=== PATIENT | female | born 1980 | race Caucasian/White ===

== ENCOUNTER 2021-05-20 15:22 | Outpatient (CLI) | payer OTHER, SELFPAY ==
[2021-05-20 18:05] LABS: Absolute Lymphocyte Count 2.55 X10^3/uL (0.83-4.51); Absolute Neutrophil Count 5.1 X10^3/uL (2.0-7.7); Basophil# 0.04 X10^3/uL; Basophil% 0.5 % (0-1); Eosinophil# 0.19 X10^3/uL; Eosinophils% 2.3 % (0-5); Hematocrit 42.9 % (37-47); Hemoglobin 14.4 g/dL (12.0-15.0); Lymphocyte # 2.55 X10^3/ul (0.83-4.51); Lymphocyte % 30.7 % (19-41); Mean Corp Hgb Conc 33.6 g/dL (32-36); Mean Corpuscular Hgb 29.6 pg (27.0-32.0); Mean Corpuscular Volume 88.3 fL (81-99); Mean Platelet Vol. 10.3 fl (6.2-12.0); Monocyte% 4.8 % (0-10); NRBC Flagged by Analyzer 0 % (0-5); Neutrophil # 5.11 X10^3/uL (2.7-7.7); Neutrophil % 61.5 % (47-70); Platelet Count 302 K/mm3 (150-450); RBC Distribution Width CV 12.8 % (11.6-14.6); RBC Distribution Width SD 41.5 fl (35.1-43.9); Red Blood Count 4.86 M/mm3 (4.2-5.4); White Blood Count 8.3 K/mm3 (4.4-11.0)
[2021-05-20 18:41] LABS: ALB/GLOB Ratio 1.2 RATIO (0.9-2.4); AST(SGOT) 8 U/L (15-37); Alanine Aminotransfer ALT/SGPT 16 U/L (13-56); Alkaline Phosphatase 89 U/L (45-117); Anion Gap 9 (5-15); BUN 11 mg/dL (7-18); BUN/Creat Ratio 15.3 RATIO (10-20); Calcium,Total 8.7 mg/dL (8.5-10.1); Chloride 107 mmol/L (98-107); Creatinine, Serum 0.72 mg/dL (0.55-1.02); EST Glomerular Filtration Rate 94 mL/min (>60); Est Glom Filt Rate - Afr Amer 114 mL/min (>60); Globulin 3.4 g/dL (2.2-4.2); Glucose 84 mg/dL (74-106); Potassium 3.8 mmol/L (3.5-5.1); Protein, Total 7.4 g/dL (6.4-8.2); Sodium Level 140 mmol/L (136-145); T4 Free Direct 0.94 ng/dL (0.76-1.46); Thyroid Stim Hormone (TSH) 1.36 uIU/mL (0.358-3.74)
[2021-05-22 20:50] LABS: Anti-Thyroglobulin AB < 1.0 IU/mL (0.0-0.9); Thyroglobulin, Serum Qt. 10.4 ng/mL (1.5-38.5); Thyroid Peroxidase AB < 8 IU/mL (0-34)
== END 2021-05-20 23:59 | disposition home or self-care (01) ==
PROVIDERS: PCP Family Medicine; Referring Provider Family Medicine; Visit Provider Family Medicine
DX: E04.1 Nontoxic single thyroid nodule (principal)
CPT/HCPCS: 36415; 80053; 84432; 84439; 84443; 85025; 86376; 86800

== ENCOUNTER 2021-05-21 16:17 | Outpatient (CLI) | payer OTHER, SELFPAY ==
--- NOTE | 2021-05-21 16:19 | US_ITS ---
STUDY: THYROID ULTRASOUND REASON FOR EXAM: Female, 41 years old. Known nodules TECHNIQUE: Ultrasound evaluation of the thyroid was performed with real-time and static mo-scale imaging. COMPARISON: 2014 FINDINGS: RIGHT LOBE: The right lobe of the thyroid gland measures 6.0 x 2.1 x 1.7 cm. There is a heterogeneous echotexture. 2 separate solid nodules, larger measures 1.4 cm. LEFT LOBE: The left lobe of the thyroid gland measures 5.5 x 2.1 x 1.4 cm. There is a heterogeneous echotexture. There is a solid/cystic 1.9 cm nodule ISTHMUS: The isthmus measures 0.7 cm. There is a 0.9 cm isthmus nodule. The regional lymph nodes are normal. US/Thyroid IMPRESSION: Enlarged heterogeneous thyroid gland with bilateral nodules. LITTLE significant change since the previous study. Findings again suggest goiter. Electronically Signed: Roby Ramos MD at 17:00 EST ,
== END 2021-05-21 23:59 | disposition home or self-care (01) ==
LOC: US 16:18
PROVIDERS: PCP Family Medicine; Referring Provider Family Medicine; Visit Provider Family Medicine
DX: E04.1 Nontoxic single thyroid nodule (principal)
CPT/HCPCS: 76536

== ENCOUNTER 2021-07-09 15:34 | Outpatient (CLI) | payer OTHER, SELFPAY ==
[2021-07-15 16:38] LABS: HPV APTIMA, High Risk Negative (Negative)
== END 2021-07-09 23:59 | disposition home or self-care (01) ==
LOC: WOBLAB 15:34
PROVIDERS: PCP Family Medicine; Visit Provider Student in an Organized Health Care Education/Training Program
DX: Z12.4 Encounter for screening for malignant neoplasm of cervix (principal)
CPT/HCPCS: 87624; 88175; G0145

== ENCOUNTER → 2021-10-19 | Outpatient (CLI) | payer OTHER, SELFPAY ==
--- NOTE | 2021-10-19 13:33 | BI_ITS ---
MAMMOGRAPHY - BILATERAL SCREENING REASON FOR EXAM: Female, 41 years old. Routine annual screening examination. PERTINENT HISTORY: Aunt with breast cancer. TECHNIQUE: Digital bilateral breast yesi (3D mammographic acquisition) in the CC and MLO projections. 2-D mediolateral oblique (MLO) and craniocaudad (CC) views of both breasts were obtained. CAD: Full Field Digital Mammography with Computer Added Detection was performed. COMPARISON: None. Baseline examination. FINDINGS: Breast Composition: There are scattered areas of fibroglandular density. There are no dominant masses or suspicious calcifications. No other significant abnormalities are identified. BI/SCRN MAMM (CAD)W/YESI BILAT IMPRESSION: Negative screening mammogram. Yearly followup mammogram recommended. (A) ASSESSMENT CATEGORY: BIRADS Category 1: Negative. A letter regarding these results will be sent to the patient by the facility within 30 days. Approximately 10% of breast cancers are not detected by mammography. A normal mammogram should not delay biopsy of a clinically suspicious abnormality. [id number] Electronically Signed: Flo Calle MD at 14:35 EDT ,
== END | disposition home or self-care (01) ==
LOC: OPBI 13:04
PROVIDERS: PCP Family Medicine; Visit Provider Family Medicine
DX: Z12.31 Encounter for screening mammogram for malignant neoplasm of breast (principal)
CPT/HCPCS: 77063; 77067

== ENCOUNTER → 2022-06-15 | Outpatient (CLI) | payer BC, SELFPAY ==
--- NOTE | 2022-06-15 08:20 | RAD_ITS ---
STUDY: X-RAY - LEFT SHOULDER REASON FOR EXAM: Female, 42 years old. Pain for one month. TECHNIQUE: 4 view(s) of the shoulder. COMPARISON: None. FINDINGS: Normal glenohumeral articulation. Normal acromioclavicular joint. Normal acromion. There is no acute fracture, dislocation or destructive osseous pathology. Normal humeral head and visualized proximal humerus. The soft tissue structures are unremarkable. Normal visualized pulmonary apex. RAD/Shoulder min 2 Views IMPRESSION: Normal x-ray examination of the left shoulder. Electronically Signed: Rigo Mishra DO at 16:54 EST ,
== END | disposition home or self-care (01) ==
LOC: RAD 08:12
PROVIDERS: PCP Family Medicine
DX: M25.512 Pain in left shoulder (principal)
CPT/HCPCS: 73030

== ENCOUNTER 2024-10-27 06:22 | Emergency (ER) | payer BC, SELFPAY ==
[2024-10-27 06:22] VITALS: BP 153/94; PULSE 91; RESP 16; TEMP 36.7; O2SAT 100; BMI 31.0
--- NOTE | 2024-10-27 06:58 | ED.VIS.CHEST ---
HPI History of Present Illness Chief Complaint: Chest Pain Narrative Narrative: Chief complaint and HPI: Left shoulder blade pain. 44-year-old female with no significant past medical history presents for evaluation of left shoulder blade pain. Patient states that she woke up with pain in this area yesterday morning in which she took ibuprofen and pain resolved. States it reoccurred this morning when she woke up. States its mostly located in the left shoulder blade/scapular region and radiates into her left shoulder. Triage note states that it radiates into her chest which she denies this to me. She denies any chest pain. She denies any numbness or tingling. Denies any trauma or injury. She denies any fever, chills, shortness of breath, abdominal pain, nausea, vomiting, weakness. Took 2 ibuprofen earlier this morning. Review of systems: See HPI Medications: As listed on the chart Allergies: As listed on the chart PFSH: Per chart Vital signs: As listed on the chart. Reviewed. Physical exam: Gen: A&O x3, NAD Head: Normocephalic, atraumatic Eyes: No sclera icterus, conjunctiva clear ENT: Moist mucous membranes Neck: Trachea midline, No JVD, full range of motion, nontender CV: RRR, no murmurs, no peripheral edema Resp: Lungs CTA BL, no w/r/c GI: Abd soft, non-distended, non-tender, no r/r/g Musc: Full ROM, no deformity, no midline spinal tenderness, no bony step-off, patient has tenderness to palpation of the paraspinal musculature of the left thoracic spine near the scapula-muscles are tense-similar pain with palpation, radial pulse +2 bilaterally Skin: Warm, dry Neuro: Alert, oriented, grossly intact, sensation intact Psych: Cooperative, appropriate mood and affect [facility] Medical History (Updated 10/27/24 @ 07:[address] Marco Lambert, ) Kidney stones Dental cavity Home Medications ?Medication ?Instructions ?Recorded ?Last Taken ?Type cyclobenzaprine 5 mg tablet 5 mg PO TID PRN muscle spasm 3 10/27/24 Unknown Rx days #9 tabs fexofenadine 180 mg tablet 180 mg PO DAILY PRN allergies 10/27/24 Unknown History (Margret Allergy) Allergy/AdvReac Type Severity Reaction Status Date / Time No Known Allergies Allergy Verified 10/27/24 06:26 Surgical History History of placement of ear tubes Cleft palate Social History Smoking Status: Former smoker alcohol intake: never EXAM Physical Exam Const Vital Signs: 10/27/24 06:22 10/27/24 07:13 Temperature 98.0 F Temperature Source Oral Pulse Rate 91 Respiratory Rate 16 Respiratory Pattern Normal Blood Pressure 153/94 H Blood Pressure Mean 113 Pulse Ox 100 Oxygen Delivery Method Room Air MDM MDM MDM Narrative Medical decision making narrative: 44-year-old female with no significant past medical history presents for evaluation of left shoulder blade pain. Patient states that she woke up with pain in this area yesterday morning in which she took ibuprofen and pain resolved. States it reoccurred this morning when she woke up. States its mostly located in the left shoulder blade/scapular region and radiates into her left shoulder. Triage note states that it radiates into her chest which she denies this to me. On physical exam, patient has tenderness to palpation of the paraspinal musculature in this region. States with palpation it feels similar to the pain that she is experiencing. I suspect her symptoms are secondary to myofascial spasm, low suspicion for ACS. Toradol and cyclobenzaprine ordered for symptoms. Basic labs ordered with chest x-ray and EKG. EKG and chest x-ray reviewed see below. CBC unremarkable. BMP and troponin pending at this time. Patient is well-known to me. Provider, Dr. Gaffney. If laboratory workup is unremarkable, plan will be to discharge home and follow-up with primary care physician. EKG: Interpreted by me/EM physician: EKG shows normal sinus rhythm without any acute ischemic changes. Heart rate 95 Diagnostic: Interpreted by me/EM physician: Chest x-ray without cardiomegaly, pneumothorax, pneumonia, effusion. Impression: 1. Left thoracic back Lab Data Labs: Laboratory Results - last 24 hr 10/27/24 06:36 WBC 9.6 RBC 4.84 Hgb 13.9 Hct 40.9 MCV 84.5 MCH 28.7 MCHC 34.0 RDW Std Deviation 41.8 RDW Coeff of Kady 13.4 Plt Count 308 MPV 9.7 Immature Gran % (Auto) 0.500 Neut % (Auto) 62.9 Lymph % (Auto) 29.0 [place] % (Auto) 5.0 Eos % (Auto) 2.1 Baso % (Auto) 0.5 Absolute Neuts (auto) 6.1 Absolute Lymphs (auto) 2.80 Nucleated RBC % 0 Discharge Plan Triage Chief Complaint: Chest Pain ED Provider: Marco Lambert Dx/Rx/DC Orders Clinical Impression: Left-sided thoracic back pain Instructions: ED Back Spasm, No Trauma Prescriptions: New cyclobenzaprine 5 mg tablet 5 mg PO TID PRN (Reason: muscle spasm) 3 Days Qty: 9 0RF No Action fexofenadine [Margret Allergy] 180 mg tablet 180 mg PO DAILY PRN (Reason: allergies) Primary Care Provider: Melodie Neri Referrals: Blair Menjivar MD [Med Staff - Train Brake Operator] - Activity Restrictions/Additional Instructions: Follow-up with your primary care physician. Return back to the ED symptoms change or worsen. Tylenol and Motrin as needed for pain. You received Toradol here in the emergency department, no ibuprofen for 8 hours. Received a muscle relaxer here in the emergency department department, no muscle relaxer for 8 hours. Muscle relaxer as needed for spasm. Do not drive or operate heavy machinery while taking these. They can increase fatigue, confusion, falls. Print Language: Cymro Disposition Disposition: Home, Self Care
[2024-10-27 07:00] LABS: Hematocrit 40.9 % (37-47); Hemoglobin 13.9 g/dL (12.0-15.0); Immature Granulocytes Count 0.050 X10^3/uL (0.0-0.0); Mean Corp Hgb Conc 34.0 g/dL (32-36); Mean Corpuscular Volume 84.5 fL (81-99); Mean Platelet Vol. 9.7 fl (6.2-12.0); NRBC Flagged by Analyzer 0 % (0-5); Platelet Count 308 K/mm3 (150-450); RBC Distribution Width CV 13.4 % (11.6-14.6); RBC Distribution Width SD 41.8 fl (35.1-43.9); Red Blood Count 4.84 M/mm3 (4.2-5.4); White Blood Count 9.6 K/mm3 (4.4-11.0)
--- NOTE | 2024-10-27 07:02 | RAD_ITS ---
PROCEDURE: CHEST PA AND LATERAL 10/27/2024 REASON FOR EXAM: CHEST PAIN TECHNIQUE: CHEST PA AND LATERAL COMPARISON: None FINDINGS: Hardware: Cardiac leads overlie the chest. Heart: Heart size and configuration are within normal limits. Mediastinum: Pulmonary vasculature and hilar structures are unremarkable. Trachea is midline. Mediastinal silhouette is within normal limits. Lungs: Expanded and clear without evidence of atelectasis, consolidation, effusion or pneumonic infiltrate. Bones: No acute osseous abnormality is noted. RAD/Chest PA and Lateral IMPRESSION: No acute cardiopulmonary process is identified radiographically. Reading Location: [id number]
[2024-10-27 07:22] VITALS: BP 129/85; PULSE 74; RESP 16; O2SAT 99
--- OUTSIDE RECORDS SUMMARY | 2024-10-27 07:25 | XMS RPT_ITS | CCD ---
Author Organization [facility] [employer] [employer] [facility] Care Team Providers Care Waistline Joiner Overlock Name Role Phone NO, PHYSICIAN Primary Care Unavailable ANGEL BO Attending Unavailab le NO, PHYSICIAN Primary Care Unavailable YOLANDA SHIRLEY Attending Unava ilable Di Menjivar Primary Care Unavailable Di Menjivar Referring Unavailable David Solorzano Attending Unavailable Di Menjivar Primary Care Unavailable Di Menjivar Referring Unavailable Cedric Leon Attending Unavailable Di Menjivar Primary Care Unavailable Di Menjivar Referring Unavailable Becky Danielson Attending Unavailable Di Menjivar Primary Care Unavailable Assessment, Health Risk Attending Unavaila ble Assessment, Health Risk Referring Unavaila ble Medications Current Medications Medication Drug Class(es) Dates Sig (Normalized) Sig (Original) fexofenadine hydrochloride 180 mg oral tablet (2 sources) Histamine-1 Receptor Antagonist Start: 03-10-2021 take 1 tablet by mouth once daily Fexofenadine (Margret Allergy) 180 mg tablet Active 180 MG PO DAILY March 10, 2021 12:43pm predniSONE 10 mg oral tablet (2 sources) Start: 03-10-2021 take 4 tablets by mouth once daily, then take 3 tablets by mouth once daily, then take 2 tablets by mouth once daily, then take 1 tablet by mouth once daily Prednisone Active 10 MG PO DAILY March 10, 2021 12:42pm 4 tablets daily x3 days, then 3 tablets daily x3 days, then 2 tablets daily x3 days, then 1 tablet daily x3 days sodium chloride 0.65 % nasal mist (2 sources) Start: 03-19-2019 sodium chloride 0.65 % nasal mist Active 1 SPRAY INTRANASAL ONCE March 19, 2019 2:23pm Start: 03-19-2019 sodium chlorid e 0.65 % nasal mist Active 1 SPRAY INTRANASAL ONCE March 19, 2019 1:00am Completed/Discontinued Medications Medication Drug Class(es) Dates Sig (Normalized) Sig (Original) amoxicillin 500 mg oral capsule (2 sources) Penicillin-class Antibacterial Start: 09-04-2020 End: 09-14-2020 take 500 mg by mouth three times daily Amoxicillin Discontinued 500 MG PO THREE TIMES A DAY 30 September 04, 2020 1:17pm September 14, 2020 12:01am amoxicillin 875 mg / clavulanate 125 mg oral tablet (2 sources) Penicillin-class Antibacterial Start: 03-19-2019 End: 03-29-2019 take 1 tablet by mouth every twelve hours Amoxicillin-Pot Clavulanate (Augmentin) 875-125 mg tablet Discontinued 1 TABLET PO Q12H 28 01March 19, 2019 2:21pm March 29, 2019 1:09am Problems Problem Classification Problem Date Documented Da te Episodic/Chronic Allergic reactions (2 sources) Urticaria; Translations: [Urticaria, unspecified] 03-10-2021 Episodic Disorders of teeth and jaw (2 sources) Dental caries; Translations: [Dental caries, unspecified] 09-04-2020 Episodic Otitis media and related conditions (2 sources) Otitis media; Translations: [Otitis media, unspecified, unspecified ear] 03-19-2019 Episodic Sprains and strains (1 source) Strain of other muscle(s) and tendon(s) of posterior muscle group at lower leg level, left leg, initial encounter; Translations: [Strain of other muscle(s) and tendon(s) of posterior muscle group at lower leg level, left leg, initial encounter] Onset: 08-13-2024 Episodic Results Test Name Value Interpretation Reference Range Facility Orthopedic Visit Reporton Orthopedic Visit Report [facility] [address] [place] [address] OFFICE VISIT Date of Service: 07/25/24 MR#: [id number] Acct: [id number] Name: ZA MARINA Rep #: [id number] : 1980 Provider: JOAQUIN loyd Age/Sex: 44/F Location[place] [facility] [place] Status: Signed Intake Vital Signs 07/25/24 08:31 Height 5 ft 5 in Intake Visit Reasons: LEFT CALF Is patient in pain?: Yes Allergies No Known Allergies Allergy (Verified 07/25/24 09:11) [facility] Medical History Dental cavity Surgical History Cleft palate History of placement of ear tubes Social History Smoking Status: Former smoker alcohol intake: never HPI LEFT CALF Details: This documentation accurately reflects the service provided and the decisions made by me, Becky Danielson, JOAQUIN 07/25/24 0905. Part of today???s visit was documented by [ ], acting as scribe. ZA MARINA is a 44 year old F here today for left calf pain. She states that she was playing with her dog last night and went to run, pushed off and felt a pop. She complains of pain over her mid calf. She is wearing compression socks to help with the swelling. Patient states that it hurts to push off when she is ambulating. She is taking ibuprofen for pain. Agree with above. No similar episodes, surgeries or injuries to this leg in the past. Pain is to the medial distal aspect of the gastrocnemius, no visible swelling or discoloration noted. Wearing compression stockings today which is helping some. Typically has to walk a lot during the day with work, modifying activity. ROS Const All systems reviewed are unremarkable except as noted in H and other (A O x 3, no apparent distress. No recent illness.) ENT Denies dizziness Card Denies chest pain, Denies dyspnea, Denies edema and Reports other (No palpitations) Resp Denies cough, Denies dyspnea and Reports other (No recent URI) GI Reports system reviewed and no additional complaints, except as documented, Denies nausea and Denies vomiting Musc Reports as per HPI, Reports abnormal gait and Reports stiffness Neuro Yes abnormal gait and No dizziness Psych Reports system reviewed and no additional complaints, except as documented Adán/Lymph Denies easy bleeding and Denies easy bruising Ortho Exam Left Foot/Ankle Date of injury: 07/24/24 ANKLE: Skin is pink, warm, dry and intact. There is mild medial distal gastroc swelling noted plantarflexion Pain with palpation and range of motion with plantarflexion, mostly with knee in full extension, sx mild with knee flexion at 50 degrees and minimal at 90 degrees, full weightbearing and attempt to go to tiptoe There is no pain or instability over the ankle or knee Achilles is soft, Law test negative mild tenderness at medial gastroc myotendinous junction There is no instability on anterior posterior ankle drawer testing, no aggravation with talar tilt Full range of motion of foot and toes with distal neurosensory intact, cap refill present at 2 seconds. Coding Level of Care Code Off vis,est,level 3 Diagnoses Strain of gastrocnemius muscle of left lower extremity, initial encounter S86.112A Encounter type: initial encounter Assessment and Plan Assessment and Plan (1) Gastrocnemius strain, left: Status: Acute Qualifiers: Encounter type: initial encounter Qualified Code(s): S86.112A - Strain of other muscle(s) and tendon(s) of posterior muscle group at lower leg level, left leg, initial encounter Plan: We discussed swelling and pain control with OTC ibuprofen 3 tablets (600mg) 3 times daily with food for the next 3 days and then may decrease to as needed basis, frequent elevation, ice and activity as tolerated. Continue to wear compression wrap or stockings for swelling control Recommended tall walking boot for weightbearing activity over the next 2 weeks, may remove with rest and sleep Encouraged out of the boot twice daily and as needed for gentle range of motion as tolerated May advanced range of motion to full ankle motions beginning in 1 week if symptoms are significantly improved Plan for follow-up visit in approximately 2 weeks, sooner for changes or concerns Declines work note at this time This document has been transcribed using Layer dictation software. There may be incorrect words, spelling, and punctuation. 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 read as negative (0mm) by this nurse at 1218pm. paperwork completed, copy given to pt and scanned in chart. order was not entered in pt chart, result posted on paper and here only. Clinical Quality Measures Falls Risk Screening/Assistive Devices Have you fallen in the past year?: No 12/15/23 1641 Date Cedric Oliva Signature: Date (if applicable) CC: Normal [facility] Office Visit Reporton 2023 Office Visit Report [facility] [address] [address] OFFICE VISIT Date of Service: 11/30/23 MR#: [id number] Acct: [id number] Patient: ZA MARINA Rep #: [id number] : 1980 Provider: YARON Gil Age/Sex: 43/F Location: [facility] [place] Status: Signed Intake Vital Signs 03/10/21 11:35 Height 5 ft 5 in Intake Visit Reasons: TB READ/[employer] EM[employer]OY[employer] Chief Complaint: PPD read Tank Carpenter Required: No Is patient in pain?: No Allergies No Known Allergies Allergy (Verified 11/30/23 08:08) Nurse's Note: PPD done at [facility] employee health on 11/28/23 at 0750. pt presents today for read, no order in pt chart. PPD read as negative (0mm) today at 0750 by this nurse. result faxed to [facility], copy scanned into pt chart, copy provided to pt 11/30/23916 Date David MARRUFO Cosigner Signature: Date (if applicable) CC: Normal [facility] Cervical or vagninal specime n microscopic examination by cytology stain (reported ason 07-09-2021 Cytology report Cyto stain Doc (Cvx/Vag) Comment [facility] Work Phone: Comment on above: The Pap smear is a s creening test designed to aid in thedetection of premalignant and malignant conditions of theuterine cervix. It is not a diagnostic procedure andshould not be used as the sole means of detecting cervicalcancer. Both false-positive and false-negative reports dooccur. Detection in cervical specim en of any of human papilloma virus (HPV) 16, 18, 31, 33,on 07-09-2021 HPV 16+18+31+33+35+39+4 5+51+52+56+58+59+66 +68 DNA Probe+sig amp Ql (Cvx) Negative Negative [facility] Work Phone: Comment on above: This nucleic acid am plification test detects fourteen high- risk HPV types (16,18,31,33,35,39,45,51,52,56,58,59,66,68)without differentiation.Performed at: [facility] [address] [id number] Director: Mone Perez MD, Phone: [phone] at: =G - [facility] [address] [id number] Director: Mone Perez MD, Phone: [phone] Laboratory - Cytologyon 06-11 Act Tutor Cyto stain Nom (Cvx/Vag) [ID] Comment [facility] Work Phone: Comment on above: Melvin Goyal [employer] hnologist (ASCP) Laboratory - Miscellaneous t estson 07-09-2021 Service comment (Unsp spec) [Interp] Comment [facility] Work Phone: Comment on above: This liquid based Th inPrep(R) pap test was screened withthe use of an image guided system. Service comment (Unsp spec) [Interp] . [facility] Work Phone: No Panel Informationon 07-09 Pathology report final diagnosis Narrative Comment [facility] Work Phone: Comment on above: NEGATIVE FOR INTRAEP ITHELIAL LESION OR MALIGNANCY. Absolute lymphocyte counton 05-20-2021 Lymphocytes Auto (Unsp spec) [#/Vol] 2.55 10*3/uL 0.83-4.51 [facility] Work Phone: Basophil percentageon 2021 Basophils/100 WBC (Bld) 0.5 % 0-1 [facility] Work Phone: Bilirubin [Mass/Vol] 0.30 mg/dL 0.20-1.00 [facility] Work Phone: Comment on above: For patients on eltr ombopag therapy, use of Dimension [place] TBIL is not recommended. Chloride [Moles/Vol] 107 mmol/L 98-107 [facility] Work Phone: Eosinophils/100 WBC (Bld) 2.3 % 0-5 [facility] Work Phone: [phone] Glucose [Mass/Vol] 84 mg/dL 74-106 [facility] Work Phone: Neutrophils (Bld) [#/Vol] 5.1 10*3/uL 2.0-7.7 [facility] Work Phone: Neutrophils/100 WBC (Bld) 61.5 % 47-70 [facility] Work Phone: [phone] Potassium [Moles/Vol] 3.8 mmol/L 3.5-5.1 [facility] Work Phone: [phone] Protein [Mass/Vol] 7.4 g/dL 6.4-8.2 [facility] Work Phone: [phone] Sodium [Moles/Vol] 140 mmol/L 136-145 [facility] Work Phone: [phone] WBC (Bld) [#/Vol] 8.3 10*3/uL 4.4-11.0 [facility] Work Phone: [phone] Blood erythrocytes count (nu mber/volume)on 05-20-2021 RBC (Bld) [#/Vol] 4.86 10*6/uL 4.2-5.4 [facility] Work Phone: [phone] Blood hemoglobin measurement (mass/volume)on 05-20-2021 Hemoglobin (Bld) [Mass/Vol] 14.4 g/dL 12.0-15.0 [facility] Work Phone: Blood lymphocytes/100 leukoc yteson 05-20-2021 Lymphocytes/100 WBC (Bld) 30.7 % 19-41 [facility] Work Phone: Blood monocytes/100 leukocyt eson 05-20-2021 Monocytes/100 WBC (Bld) 4.8 % 0-10 [facility] Work Phone: [phone] Blood platelet mean volumeon 05-20-2021 Platelet mean volume (Bld) [Entitic vol] 10.3 fL 6.2-12.0 [facility] Work Phone: Determination of erythrocyte mean corpuscular volume (MCV)on 05-20-2021 MCV (RBC) [Entitic vol] 88.3 fL 81-99 [facility] Work Phone: Hematocrit Auto (Bld) [Volum e fraction]on 05-20-2021 Hematocrit (Bld) [Volume fraction] 42.9 % 37-47 [facility] Work Phone: Laboratory - Chemistry and C hemistry - challengeon 05-20-2021 ALP [Catalytic activity/Vol] 89 U/L 45-117 [facility] Work Phone: ALT [Catalytic activity/Vol] 16 U/L 13-56 [facility] Work Phone: CO2 [Moles/Vol] 24.0 mmol/L 21.0-32.0 [facility] Work Phone: [phone] Free T4 [Mass/Vol] 0.94 ng/dL 0.76-1.46 [facility] Work Phone: Globulin (S) [Mass/Vol] 3.4 g/dL 2.2-4.2 [facility] Work Phone: Urea nitrogen/Creatinine [Mass ratio] 15.3 mg/mg 10-20 [facility] Work Phone: Laboratory - Hematology and Cell countson 05-20-2021 Erythrocyte distribution width (RBC) [Entitic vol] 41.5 fL 35.1-43.9 [facility] Work Phone: Erythrocyte distribution width (RBC) [Ratio] 12.8 % 11.6-14.6 [facility] Work Phone: Immature granulocytes/100 WBC (Bld) 0.200 % 0.0-0.9 [facility] Work Phone: Comment on above: IG% - Immature Granu locytes (promyelocytes, myelocytes and metamyelocytes) > 1% indicates that a LEFT SHIFT is Present. MCH (RBC) [Entitic mass] 29.6 pg 27.0-32.0 [facility] Work Phone: Nucleated RBC/100 WBC (Bld) [Ratio] 0 % 0-5 [facility] Work Phone: MCHC Auto (RBC) [Mass/Vol]on 05-20-2021 MCHC (RBC) [Mass/Vol] 33.6 g/dL 32-36 [facility] Work Phone: No Panel Informationon 05-20 Estimated GFR (MDRD) Amer 114 mL/min >60 [facility] Work Phone: Comment on above: GFR Calc Estimated GFR (MDRD) Non-Af Amer 94 mL/min >60 [facility] Work Phone: Comment on above: Non- GFR Calc Thyroglobulin Antibody < 1.0 IU/mL [facility] Work Phone: Comment on above: Thyroglobulin Antibo dy measured by [employer] Thyroglobulin Level 10.4 ng/mL [facility] Work Phone: Comment on above: According to the [facility] [employer],the reference interval for Thyroglobulin (TG) should berelated to euthyroid patients and not for patients whounderwent thyroidectomy. TG reference intervals for thesepatients depend on the residual mass of the thyroid tissueleft after surgery. Establishing a post-operative baselineis recommended. The assay limit of quantitation is 0.1ng/mLThyroglobulin measured by Juan Melo [employer] Thyroid Stimulating Hormone (TSH) 1.36 uIU/mL 0.358-3.74 [facility] Work Phone: Platelets bldon 05-20-2021 Platelets (Bld) [#/Vol] 302 10*3/uL 150-450 [facility] Work Phone: Serum or plasma albumin shukri urement (mass/volume)on 05-20-2021 Albumin [Mass/Vol] 4.0 g/dL 3.2-5.0 [facility] Work Phone: Serum or plasma albumin/glob ulin mass ratioon 05-20-2021 Albumin/Globulin [Mass ratio] 1.2 {ratio} 0.9-2.4 [facility] Work Phone: Serum or plasma calcium shukri urement (mass/volume)on 05-20-2021 Calcium [Mass/Vol] 8.7 mg/dL 8.5-10.1 [facility] Work Phone: Serum or plasma creatinine m easurement (mass/volume)on 05-20-2021 Creatinine [Mass/Vol] 0.72 mg/dL 0.55-1.02 [facility] Work Phone: Comment on above: The validity of the calculated GFR & GFRAA in patients over 70 years has not been determined. Clinical correlation is essential. Serum or plasma thyroperoxid ase antibody assay (units/volume)on 05-20-2021 TPO Ab Qn [IU]/mL [facility] Work Phone: Comment on above: Performed at: [facility] [place] [id number] Director: Albin Ortiz PhD, Phone: [phone] Serum or plasma urea nitroge n measurement (mass/volume)on 05-20-2021 Urea nitrogen [Mass/Vol] 11 mg/dL 7-18 [facility] Work Phone: Thin prep Papanicolaou smear with manual screeningon 05-20-2021 Thin prep Papanicolaou smear with manual screening 8 U/L 15-37 [facility] Work Phone: Thin prep Papanicolaou smear with manual screening 9 5-15 [facility] Work Phone: CT KIDNEY STONEon 03-12-2021 CT KIDNEY STONE EXAMINATION: CT KIDNEY STONE HISTORY: ORDERING SYSTEM PROVIDED HISTORY: Flank pain, kidney stone suspected, TECHNOLOGIST PROVIDED HISTORY: Illness/Other Reason for exam: Flank pain, kidney stone suspected Encounter Type: Initial Additional signs and symptoms: pain today, pt is on menstral cycle ORDERING SYSTEM PROVIDED DIAGNOSIS CODES: COMPARISON: None. TECHNIQUE: CT examination of the abdomen and pelvis without IV contrast. Coronal and sagittal reformations were performed. Dose reduction techniques were achieved by using automated exposure control and/or adjustment of mA and/or kV according to patient size and/or use of iterative reconstruction technique. FINDINGS: Bone windows demonstrate no suspicious osseous lesion. The visualized portion of the lung base demonstrates minimal bibasilar atelectasis. A portion of the hepatic dome has been excluded from the imaging [id number]. Evaluation of the visceral organs is limited due to lack of IV contrast. Allowing for the limitation of the study, the liver, spleen, pancreas, bilateral adrenal glands appear normal in contour. The gallbladder is fluid-filled. No CT evidence of pericholecystic inflammatory process. The right hepatic lobe measures 18.2 cm in craniocaudal dimension. The stomach and duodenum appears unremarkable. No CT evidence of gastrohepatic, periportal lymphadenopathy. There is mild left-sided hydroureteronephrosis secondary to a 2 mm stone in the mid ureter, at the level of L2/L3. There is also subtle periureteric stranding, likely inflammatory in nature. No right-sided hydronephrosis/nephrolith iasis/hydroureter. The bladder is incompletely distended. Anteverted uterus. The uterus is slightly lobulated in contour. Underlying adenomyosis cannot be excluded. If desired, this can be further evaluated with MRI pelvis. There is a dominant follicle along the left adnexa measuring 12 x 12 mm. The right adnexa appears unremarkable. The small and large bowel are normal in caliber. No bowel obstruction. The appendix is normal in caliber. Small amount of stool burden. The small bowel loops are relatively collapsed, limiting the evaluation. There is no intraperitoneal free air or free fluid. Incidental findings of a retroaortic left renal vein. No bulky retroperitoneal lymph nodes. A few subcentimeter lymph nodes along the left common iliac chain is likely reactive in nature. No pathologically enlarged pelvic sidewall, inguinal lymph nodes. IMPRESSION: Mild left-sided hydroureteronephrosis secondary to a 2 mm stone in the mid ureter, at the level of L2-L3. No right-sided hydronephrosis/hydrourete r/nephrolithiasis. Dominant follicle in the left ovary measuring 12 mm. Slightly lobulated contour of the uterus. Underlying adenomyosis cannot be excluded. If desired, this can be further evaluated with MRI pelvis. No evidence of bowel obstruction. The appendix is normal in caliber. Small amount of stool burden. Nonspecific mild hepatomegaly. SA/jcw Workstation ID: [id number] Dictated by: VERO ALCANTARA on Brandy Mar 12, 2021 4:14:34 PM EST Transcribed by: DI VALENTINE on Brandy Mar 12, 2021 4:31:12 PM EST Finalized by: VERO ALCANTARA on Cato Mar 15, 2021 10:13:52 AM EST Normal [facility] Comment on above: Order Comment: Injur y/Trauma or Illness?:Illness/Other How long have you had these symptoms (acute/chronic)?:Acute Reason for exam?:Flank pain, kidney stone suspected Type of Exam?:Initial Additional signs and symptoms?:pain today, pt is on menstral cycle CT PULMONARY ARTERIES CT PULMONARY ARTERIES EXAMINATION: CT PULMONARY ARTERIES HISTORY: ORDERING SYSTEM PROVIDED HISTORY: Pulmonary embolism (PE) suspected, high prob, TECHNOLOGIST PROVIDED HISTORY: Illness/Other Reason for exam: chest pain Encounter Type: Initial Additional signs and symptoms: elevated d-dimer ORDERING SYSTEM PROVIDED DIAGNOSIS CODES: COMPARISON: Chest radiograph and CT abdomen and pelvis performed earlier the same day. TECHNIQUE: CT angiography of the pulmonary arteries following the administration of intravenous contrast. Coronal and sagittal MIP images were performed. Dose reduction techniques were achieved by using automated exposure control and/or adjustment of mA and/or kV according to patient size and/or use of iterative reconstruction technique. CONTRAST: IOPAMIDOL 76 % INTRAVENOUS SOLUTION - 75 mL, FINDINGS: Vasculature: The study is technically adequate. The pulmonary arterial system is well opacified without luminal filling defect to suggest a pulmonary embolism. The aorta and pulmonary arteries are normal in caliber. Mediastinum: There is a 1.1 cm right thyroid nodule and a 0.8 cm left thyroid nodule. The esophagus is unremarkable. The heart size and chambers are normal. No pericardial effusion or right heart strain. No lymphadenopathy. Lungs, airways and pleura: Thin walled 11 mm pulmonary cyst in the left upper lobe (axial image 33). Mild bibasilar dependent atelectasis. No pleural effusion, focal consolidation, or pneumothorax. The airways are patent. There is mild bronchial wall thickening. Musculoskeletal and Chest wall:No acute osseous abnormality. Sclerotic lesions in the manubrium and right humeral head are favored to represent bone islands. Upper Abdomen: Mild left hydronephrosis is better characterized on CT scan study performed earlier the same day. The renal parenchyma symmetrically enhances. IMPRESSION: 1. No pulmonary embolism. 2. No acute cardiopulmonary abnormality. 3. Bilateral thyroid nodules. Nonemergent thyroid ultrasound is recommended. 4. Mild left hydronephrosis better characterized on CT stone study performed earlier the same day. [facility] Workstation ID: [id number] Dictated by: BAILEE MORENO on [place] Mar 12, 2021 6:22:54 PM EST Transcribed by: DI VALENTINE on [facility] Mar 12, 2021 6:37:59 PM EST Finalized by: BAILEE MORENO on [facility] Mar 12, 2021 6:43:03 PM EST [facility] Comment on above: Order Comment: Injur y/Trauma or Illness?:Illness/Other How long have you had these symptoms (acute/chronic)?:Acute Reason for exam?:chest pain Type of Exam?:Initial Additional signs and symptoms?:elevated d-dimer XR CHEST PA/APon 03-12-2021 XR CHEST PA/AP EXAMINATION: XR CHEST PA/AP 03/12/2021 3:57 pm HISTORY: ORDERING SYSTEM PROVIDED HISTORY: Chest pain, TECHNOLOGIST PROVIDED HISTORY: Illness/Other Reason for exam: cp Cancer History: . Surgery, RadiationHistory: . Encounter Type: Initial Additional signs and symptoms: midsternal ORDERING SYSTEM PROVIDED DIAGNOSIS CODES: COMPARISON: None. FINDINGS: Portable AP upright chest radiograph. The cardiomediastinal contour is within normal limits. The lungs are clear without any focal consolidative opacities. There is no pleural effusion. No pneumothorax. No gross abnormalities of the visualized osseous structure. IMPRESSION: No acute cardiopulmonary findings. /[facility] Workstation ID: [id number] Dictated by: VERO ALCANTARA on TueMar 12, 2021 4:18:45 PM EST Transcribed by: DI VALENTINE on [place] Mar 12, 2021 4:42:16 PM EST Finalized by: VERO ALCANTARA on [place] Mar 15, 2021 10:11:56 AM EST [facility] Comment on above: Order Comment: Injur y/Trauma or Illness?:Illness/Other How long have you had these symptoms (acute/chronic)?:Acute Reason for exam?:cp History of cancer?:. Surgeries, chemotherapy, or radiation?:. Type of Exam?:Initial Additional signs and symptoms?:midsternal Encounters Encounter Date Encounter Type Care Provider Facility Start: 07-25-2024 End: 07-25-2024 ambulatory Di Menjivar Facility:[facility] Start: 12-15-2023 End: 12-15-2023 ambulatory Di Menjivar Facility:[facility] Start: 11-30-2023 End: 11-30-2023 ambulatory Di Menjivar Facility:[facility] Start: 11-24-2023 ambulatory Di Menjivar Facilit y:[facility] Start: 06-15-2022 End: 06-15-2022 ambulatory [facility] Work Phone: Start: 06-15-2022 End: 06-15-2022 Patient encounter procedure [facility]-Radiology, [facility] Start: 07-09-2021 End: 07-09-2021 Patient encounter procedure [facility]-Laboratory, [place] [employer] [facility] Start: 05-21-2021 End: 05-21-2021 Patient encounter procedure [facility]-Ultrasound, [facility] Start: 05-20-2021 End: 05-20-2021 Patient encounter procedure [facility]-Laboratory, Toni Flores Start: 03-12-2021 End: 03-12-2021 Emergency department patient visit PHYSICIAN NO [facility] Start: 03-11-2021 End: 03-12-2021 Emergency department patient visit PHYSICIAN NO [facility] Procedures Date Procedure Procedure Detail Performing Clinician Start: 06-15-2022 Plain X-ray of shoulder Start: 05-21-2021 Thyroid Immunizations Immunization Date Immunization Notes Care Provider [facility] 02-08-2022 influenza, seasonal, injectable [facility] 02-27-2021 Covid (Moderna) [facility] 01-06-2021 influenza, seasonal, injectable [facility] 05-12-2020 Covid (Moderna) [facility] 04-14-2020 Covid (Moderna) [facility] 01-08-2020 influenza, seasonal, injectable [facility] 02-12-2019 influenza, seasonal, injectable [facility] 01-23-2018 influenza, seasonal, injectable [facility] 01-05-2017 influenza, seasonal, injectable [facility] 01-08-2016 influenza, seasonal, injectable [facility] 01-09-2015 influenza, seasonal, injectable [facility] 01-09-2014 influenza, seasonal, injectable [facility] Payers Date Payer Category Payer Unknown [id number] 2023 Self-pay [id number] 2020 Unknown [id number] 1980 Unknown [id number] [id number] 1980 Unknown [id number] 2.16. [id number] Unknown EMANUEL [id number] [id number] Unknown [id number] 2.16.8 [id number] Unknown [id number] [id number] Unknown [id number] 2.16.8 [id number] Unknown [id number] [id number] Social History Date Type Detail Facility [facility]: [facility] Start: 1980 Sex Assigned At Female [facility] Clinical Note 07-09-2021 Note Date & Type Note Facility 07-09-2021 Note [facility] Work Phone: Pap Smear Specimen Adequacy July 09, 2021 2:30pm Comment Satisfactory for evaluation. Endocervical and/or squamous metaplasticcells (endocervical component) are present. Comment on above: Satisfactory for maritza luation. Endocervical and/or squamous metaplasticcells (endocervical component) are present. 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 Lee Singh MD Family Provider Active Dr. Di Menjivar MD Primary Care Provider Active Team Status: Inactive Member Role Status Dates Dr. Di Menjivar MD Primary Care Provider Active Jessica MARRUFO PA Attending Provider Active FOR RECORDS PERTAINING TO PATIENTS WHO ARE OR HAVE BEEN ENROLLED IN A CHEMICAL DEPENDENCY/SUBSTANCEABUSE PROGRAM, SOME INFORMATION MAY BE OMITTED. This clinical summary was aggregated from multiple sources. Caution should be exercised in using it in the provision of clinical care. This summary normalizes information from multiple sources, and as a consequence, information in this document may materially change the coding, format and clinical context of patient data. In addition, data may be omitted in some cases. CLINICAL DECISIONS SHOULD BE BASED ON THE PRIMARY CLINICAL RECORDS. [facility]. provides no warranty or guarantee of the accuracy or completeness of information in this document.
[2024-10-27 07:33] LABS: Anion Gap 12 (5-15); BUN 13 mg/dL (4-19); BUN/Creat Ratio 17.2 RATIO (10-20); Calcium,Total 8.9 mg/dL (7.6-11.0); Carbon Dioxide 21.5 mmol/L (21.0-32.0); Chloride 104 mmol/L (98-108); Estimated Creatinine Clearance 104.53 ml/min (50-250); Glucose 101 mg/dL (70-99); Potassium 3.9 mmol/L (3.3-5.1); Troponin T High Sensitivity < 6 ng/L (<=14)
[2024-10-27 08:00] VITALS: BP 133/77; PULSE 84; RESP 17; TEMP 37; O2SAT 100
== END 2024-10-27 08:03 | disposition home or self-care (01) ==
PROVIDERS: Emergency Provider Surgery; PCP Internal Medicine; Visit Provider Surgery
DX: M54.6 Pain in thoracic spine (principal); Z87.891 Personal history of nicotine dependence
CPT/HCPCS: 71046; 80048; 84484; 85025; 93005; 96374; 99284; A4216

== ENCOUNTER → 2024-12-11 | Outpatient (CLI) | payer BC, SELFPAY | END | disposition home or self-care (01) | LOC: MTLAB 13:39 | PROVIDERS: Referring Provider Nurse Practitioner Family; Visit Provider Nurse Practitioner Family | DX: N92.0 Excessive and frequent menstruation with regular cycle (principal); Z13.29 Encounter for screening for other suspected endocrine disorder | CPT/HCPCS: 36415; 84439; 84443 ==

== ENCOUNTER → 2024-12-18 | Outpatient (CLI) | payer BC, SELFPAY | END | disposition home or self-care (01) | LOC: LABSPEC 16:11 | PROVIDERS: Visit Provider Physician Assistant | DX: R30.0 Dysuria (principal) | CPT/HCPCS: 87086; 87088 ==

== ENCOUNTER → 2024-12-26 | Outpatient (CLI) | payer BC, SELFPAY ==
--- NOTE | 2024-12-26 08:31 | US_ITS ---
PROCEDURE: PELVIC W/ TRANSVAGINAL REASON FOR EXAM: PELVIC PAIN Heavy bleeding. TECHNIQUE: Procedure Code: [id number] Modality: US Procedure: PELVIC W/ TRANSVAGINAL COMPARISON: None FINDINGS: Measurements: Uterus: 11.4 cm x 7 cm x 5.3 cm with a volume of 221.1 mL Endometrial Thickness: 11 mm. There is a 1.3 cm by 1.2 cm x 1.1 cm polyp with a stock in the endometrium. Increased vascularity. Right Ovary: 3.3 cm x 3.1 cm x 2 cm with a volume of 10.8 mL. Left Ovary: 3.1 cm x 1.8 cm x 1.9 cm with a volume of 5.4 mL. TRANSABDOMINAL: Uterus: Normal size, myometrial echotexture, and contour. Endometrium: Endometrium measures 11 mm. There is evidence of a 1.3 cm 1.2 cm 1.1 cm polyp on a stalk within the endometrium with increased vascularity. Right ovary: 2.3 cm 1.6 cm 1.7 cm ovarian cyst. Left ovary: Normal size and echotexture. Other: No large pelvic mass identified. Transvaginal sonography was performed to better visualize the endometrium. TRANSVAGINAL: Uterus: Anteverted. Endometrium: Endometrial thickening. 1.3 cm x 1.2 cm 1 cm endometrial polyp with increased vascularity. Right ovary: 2.3 cm 1.6 cm 1.7 cm ovarian cyst. Left ovary: Normal size and echotexture. Other adnexal findings: None. Cul-de-sac: No free intraperitoneal fluid identified. Tenderness: No tenderness US/Pelvic w/ Transvaginal IMPRESSION: Endometrial polyp measuring 1.3 cm 1.2 cm 1 cm. Right ovarian cyst. Reading Location: [place] [address]
--- NOTE | 2024-12-26 08:45 | BI_ITS ---
EXAM: SCRN MAMM (CAD)W/YESI BILAT DATE: 12/26/2024 CLINICAL HISTORY: F, Age 44 y/o , SCREENING FOR BREAST CANCER TECHNIQUE: Procedure Code: [id number] Modality: MG Procedure: SCRN MAMM (CAD)W/YESI BILAT COMPARISON: Prior exam(s) dated prior study dated October 19, 2021.. FINDINGS: TISSUE DENSITY: There are scattered areas of fibroglandular density. Bilateral Breast Mammographic Findings: No significant masses, calcifications or other abnormalities are identified. Stable small benign-appearing bilateral axillary lymph node No suspicious masses, areas of developing architectural distortion, or suspicious calcifications. There has been no significant interval change. BI/SCRN MAMM (CAD)W/YESI BILAT IMPRESSION: Stable bilateral screening mammogram. OVERALL FINAL ASSESSMENT BI-RADS 2: BENIGN RECOMMENDATION: Routine annual follow-up in 1 Year A letter with findings and recommendations will be mailed to the patient. Reading Location: [place] [address]
== END | disposition home or self-care (01) ==
LOC: OPBI 08:29
PROVIDERS: Referring Provider Nurse Practitioner Family; Visit Provider Nurse Practitioner Family
DX: Z12.31 Encounter for screening mammogram for malignant neoplasm of breast (principal)
CPT/HCPCS: 76830; 76856; 77063; 77067

== ENCOUNTER → 2025-03-13 | Outpatient (CLI) | payer BC, SELFPAY ==
--- NOTE | 2025-03-13 10:00 | EMB_PTH ---
PATIENT: ZA MARINA LOC: [facility] U#:[id number] AGE/SX: 45/F ROOM: RE03/13/[address]: Dr. Azalia Landeros DO : 1980 BED: DIS: 03/13/2025 SPEC #: [id number] RECD: 03/13/25 12:11 STATUS: PADMA JESSICA #: [id number] RAE: 03/13/25 10:[address]: Azalia Landeros DEPT: SURGICAL PATHOLOGY RECD BY: Kya Olmstead ENTERED: 03/14/25 08:49 SP TYPE: ENDOM BX/C NATALIE DR: No Primary Care Phys Tissues: Endometrium, NOS Procedures: Surgery Specimen Level IV HEADER OPERATION: Endometrial biopsy PRE-OP DIAGNOSIS: Abnormal uterine bleeding, polyp TISSUE SUBMITTED: A- Endometrial tissue MICROSCOPIC DIAGNOSIS A. Endometrium, biopsy: - Menstrual endometrium MICROSCOPIC DESCRIPTION Slides are reviewed. GROSS DESCRIPTION A. Received in formalin labeled the patient's name and date of is a 2.7 x 1.1 x 0.3 cm aggregate of dark red clotted blood. Entirely submitted in 1 cassette. PA 03/13/2025 CPT:03728
--- OUTSIDE RECORDS SUMMARY | 2025-03-13 12:31 | XMS RPT_ITS | CCD ---
Author Organization [facility] Care Team Providers Care Core Machine Operator Name Role Phone NO, PHYSICIAN Primary Care Unavailable ANGEL BO Attending Unavailab le OMEGA, PHYSICIAN Primary Care Unavailable YOLANDA SHIRLEY Attending Unava hortencia Menjivar MD, Dr. Di Bull Primary Care Provider Dr. Di Menjivar MD Referring Provider Becky Campuzano Attending Provider Dr. Marco Lambert DO Emergency Provider Dr. Melodie Neri MD Primary Care Provider Fausto MUNOZ, Dr. Lara Attending Provider Dr. Melodie Neri MD Referring Provider Ioana Michael Attending Provider Care Physician, No Primary Primary Care Provider Unavailable Ioana Michael Referring Provider Care Physician, No Primary Referring Provider Un available David Holliday Attending Provider Dr. Marco Lambert DO Attending Physician Dr. Marco Lambert DO [facility] Dr. Melodie Neri MD Primary Care Physician oIana Michael Attending Physician Care Physician, No Primary Primary Care Physicia n Unavailable David Holliday Attending Physician Care Physician, No Primary Primary Care Unava Ioana Menjivar Attending Unavailable Ioana Navas Referring Unavailable Care Physician, No Primary Primary Care Unava ilable David Holliday Attending Unavailable Ioana Navas Attending Unavailable Melodie Neri Primary Care Unavailable Halle, Melodie Referring Unavailable Becky Danielson Attending Unavailable Schinglenn, Di E Primary Care Unavailable Schinglenn, Di E Referring Unavailable Care Physician, No Primary Primary Care Unava ilable Azalia Landeros Attending Unavailabl e Care Physician, No Primary Referring Unava ilable Care Physician, No Primary Primary Care Unava ilable David Holliday Attending Unavailable Care Physician, No Primary Referring Unava ilable Cavalier, Melodie Primary Care Unavailable Marco Lambert [facility] Care Physician, No Primary Primary Care Unava ilable Ioana Navas Attending Unavailable Ioana Navas Referring Unavailable Fausto MUNOZ, Dr. Lara Attending Physician Fausto MUNOZ, Dr. Lara [facility] Physician Halle SUAREZ, Dr. Sewell Primary Care Physician Halle SUAREZ, Dr. Sewell Referring Provider Ioana Michael Attending Physician Care Physician, No Primary Primary Care Physicia n Unavailable Eloise MINING MANAGER-CIoana Referring Provider Care Physician, No Primary Referring Provider Un available David Holliday Attending Physician Dr. Azalia Landeros DO Attending Physician Medications Current Medications Medication Drug Class(es) Dates Sig (Normalized) Sig (Original) fexofenadine hydrochloride 180 mg oral tablet (16 sources) Histamine-1 Receptor Antagonist Start: 03-10-20 21 End: 10-28-19 25 take 1 tablet by mouth once daily as needed Fexofenadine (Margret Allergy) 180 mg tablet Active 180 mg PO DAILY as needed for allergies October 26, 2024 11:00pm Complies with drug therapy LORazepam 0.5 mg oral tablet (1 source) Benzodiazepine Start: 01-31-20 25 take 1 tablet by mouth once Lorazepam (Ativan) 0.5 mg tablet Active 0.5 mg PO ONCE 1 0 January 29, 2025 11:00pm take this pill 30 minutes before procedure Complies with drug therapy medroxyPROGESTERone acetate 5 mg oral tablet (1 source) Progestin Start: 01-31-20 take 1 tablet by mouth once daily Medroxyprogesterone 5 mg tablet Active 5 mg PO daily 60 January 29, 2025 11:00pm Complies with drug therapy Ig-Mk-Pgal-Fa-Ca Carb-Vit K (Women's Multivitamin) 18 mg-400 mcg- 500 mg-50 mcg tablet (6 sources) Start: 12-07-19 Cf-Ha-Whxn-Fa-Ca Carb-Vit K (Women's Multivitamin) 18 mg-400 mcg- 500 mg-50 mcg tablet Active {tbl} PO December 05, 2024 11:00pm Complies with drug therapy Start: 12-06-2024 Start: 12-06-2024 Pc-Ha-Dohm-Fa- Ca Carb-Vit K (Women's Multivitamin) 18 mg-400 mcg- 500 mg-50 mcg tablet Active {tbl} PO December 06, 2024 12:00am sodium chloride 0.65 % nasal mist (2 sources) Start: 03-19-2019 sodium chlorid e 0.65 % nasal mist Active 1 SPRAY INTRANASAL ONCE March 19, 2019 2:23pm Start: 03-19-2019 sodium chlorid e 0.65 % nasal mist Active 1 SPRAY INTRANASAL ONCE March 19, 2019 1:00am Completed/Discontinued Medications Medication Drug Class(es) Dates Sig (Normalized) Sig (Original) amoxicillin 500 mg oral capsule (9 sources) Penicillin-class Antibacterial Start: 09-04-2020 End: 09-14-2020 take 1 capsule by mouth three times daily Amoxicillin 500 mg capsule Discontinued 500 mg PO THREE TIMES A DAY 30 10 September 03, 2020 11:00pm September 12, 2020 11:00pm September 13, 2020 11:01pm amoxicillin 875 mg / clavulanate 125 mg oral tablet (9 sources) Penicillin-class Antibacterial Start: 03-19-2019 End: 03-29-2019 Amoxicillin-Pot Clavulanate (Augmentin) 875-125 mg tablet Discontinued 1 {tbl} PO Q12H 20 10 0 March 19, 2019 12:00am March 28, 2019 12:00am March 29, 2019 12:09am Acute sinusitis, unspecified cyclobenzaprine hydrochloride 5 mg oral tablet (7 sources) Muscle Relaxant Start: 10-27-2024 End: 12-06-2024 take 1 tablet by mouth three times daily as needed for muscle spasms Cyclobenzaprine 5 mg tablet Discontinued 5 mg PO THREE TIMES A DAY as needed for muscle spasm 9 3 0 October 26, 2024 11:00pm December 06, 2024 10:04am Norethindrone Ac-Eth Estradiol (5 sources) Estrogen Start: 12-13-2024 End: 01-30-2025 Norethindrone Ac-Eth Estradiol (Loestrin 1/20 (21)) 1-20 mg-mcg tablet Discontinued 1 {tbl} PO daily 63 0 December 12, 2024 11:00pm January 30, 2025 7:12am Start: 12-13-2024 Start: 12-13-2024 Norethindrone Ac-Eth Estradiol (Loestrin 1/20 (21)) 1-20 mg- mcg tablet Active 1 {tbl} PO daily 63 0 December 13, 2024 12:00am meloxicam 15 mg oral tablet (7 sources) Nonsteroidal Anti-inflammatory Drug Start: 07-09-2022 End: 08-08-2022 take 1 tablet by mouth once daily Meloxicam 15 mg tablet Discontinued 15 mg PO DAILY 30 30 0 July 08, 2022 11:00pm August 06, 2022 11:00pm August 07, 2022 11:04pm Left shoulder pain Pain in left shoulder Pain Do not take in conjunction with other NSAIDs. Tylenol is okay. nitrofurantoin, macrocrystals 25 mg / nitrofurantoin, monohydrate 75 mg oral capsule (5 sources) Nitrofuran Antibacterial Start: 12-18-2024 End: 12-23-2024 take 1 capsule by mouth every twelve hours at mealtime Nitrofurantoin Monohyd/M-Cryst (Macrobid) 100 mg capsule Discontinued 100 mg PO Q12H 10 5 0 December 17, 2024 11:00pm December 21, 2024 11:00pm December 22, 2024 11:06pm must administer with a meal/food predniSONE 10 mg oral tablet (9 sources) Start: 03-10-2021 End: 07-09-2022 take 4 tablets by mouth once daily, then take 3 tablets by mouth once daily, then take 2 tablets by mouth once daily, then take 1 tablet by mouth once daily Prednisone 10 mg tablet Discontinued 10 mg PO DAILY 30 0 March 10, 2021 12:00am July 09, 2022 1:58pm 4 tablets daily x3 days, then 3 tablets daily x3 days, then 2 tablets daily x3 days, then 1 tablet daily x3 days Sodium Chloride 0.65 % mist (7 sources) Start: 03-19-2019 End: 10-27-2024 Sodium Chloride 0.65 % mist Discontinued 1 NMA INTRANASAL ONCE March 19, 2019 12:00am October 27, 2024 5:27am Start: 03-19-2019 End: 10-27-2024 Sodium Chloride 0.65 % mist Discontinued 1 NMA INTRANASAL ONCE March 19, 2019 1:00am October 27, 2024 6:27am Problems Active Problems Problem Classification Problem Date Documented Date Episodic/Chronic Abdominal pain (11 sources) Pain in pelvis; Translations: [Pelvic and perineal pain] Onset: 12-06-2024 12-06-2024 Episodic Allergic reactions (9 sources) Urticaria; Translations: [Urticaria, unspecified] 03-10-2021 Episodic Contraceptive and procreative management (1 source) Encounter for contraceptive management, unspecified; Translations: [Encounter for contraceptive management, unspecified] Onset: 12-06-2024 Episodic Disorders of teeth and jaw (9 sources) Dental caries; Translations: [Dental caries, unspecified] 09-04-2020 Episodic Genitourinary symptoms and ill-defined conditions (1 source) Dysuria; Translations: [Dysuria] Onset: 01-01-2025 Episodic Menstrual disorders (12 sources) Menorrhagia; Translations: [Excessive and frequent menstruation with regular cycle] Onset: 12-28-2024 12-06-2024 Chronic Nonspecific chest pain (1 source) Chest pain, unspecified; Translations: [Chest pain, unspecified] Onset: 12-06-2024 Episodic Other female genital disorders (2 sources) Abnormal uterine bleeding due to endometrial polyp; Translations: [Abnormal uterine and vaginal bleeding, unspecified] 01-30-2025 Chronic Other female genital disorders (2 sources) Enlarged uterus; Translations: [Hypertrophy of uterus] 01-30-2025 Episodic Other screening for suspected conditions (not mental disorders or infectious disease) (2 sources) Encounter for screening mammogram for malignant neoplasm of breast; Translations: [Encounter for screening for malignant neoplasm of colon] Onset: 12-06-2024 Episodic Otitis media and related conditions (9 sources) Otitis media; Translations: [Otitis media, unspecified, unspecified ear] 03-19-2019 Episodic Spondylosis; intervertebral disc disorders; other back problems (7 sources) Thoracic back pain; Translations: [Pain in thoracic spine] 10-27-2024 Episodic Unclassified (1 source) Encounter for screening for malignant neoplasm of colon Unclassified (6 sources) Z12.11 - Encounter for screening for malignant neoplasm of colon Unclassified (4 sources) Patient encounter status Past or Other Problems Problem Classification Problem Date Documented Da te Episodic/Chronic Sprains and strains (9 sources) Strain of other muscle(s) and tendon(s) of posterior muscle group at lower leg level, left leg, initial encounter; Translations: [Gastrocnemius strain, left] Onset: 08-13-2024 07-25-2024 Episodic Results Test Name Value Interpretation Reference Range Facility Infection Prevention Specialist Office Visit Reporton 01-30-2025 Infection Prevention Specialist Office Visit Report [facility] [address], [address] [place] [address] OFFICE VISIT Date of Service: 01/30/25 MR#: [id number] Acct: [id number] Name: ZA MARINA Rep #: [id number] : 1980 Provider: Dr. Azalia Fan DO Age/Sex: 44/F Location: [facility] Status: Signed Intake Vital Signs 12/18/24 15:56 01/30/25 08:07 01/30/25 08:09 Height 5 ft 5 in 5 ft 5 in 5 ft 5 in Weight: 188 lb 186 lb 2 oz BMI 31.2 30.9 BP 142/90 H 146/91 H Blood Pressure Location Lt brachial Pulse 84 Pulse Source Monitor Temp 98.3 F Pulse Oximetry (%) 97 Oxygen Delivery Method room air Intake Visit Reasons: surgical consult-polyp Sld Teacher Required: No Is patient in pain?: No Allergies No Known Allergies Allergy (Verified 01/30/25 08:07) Medications ???Medication ???Instructions ???Recorded ???Confirmed ???Type fexofenadine 180 mg tablet 180 mg PO DAILY PRN allergies 10/0901/30/25 History (Margret Allergy) pajzoqil-vot-ujyw 18 mg-FA 400 tab PO 12/06/24 01/30/25 History mcg-calcium 500 mg-vit K 50 mcg tablet (Women's Multivitamin) lorazepam 0.5 mg tablet (Ativan) 0.5 mg PO ONCE #1 TAB 01/30/25 Rx medroxyprogesterone 5 mg tablet 5 mg PO QDAY #60 tabs 01/30/25 Rx Post menopausal: No Patient : No : No PFSH Medical History Gastrocnemius strain, left Kidney stones Dental cavity Surgical History History of placement of ear tubes Cleft palate Family History Aunt Thyroid cancer Grandmother Ovarian cancer Mother H/O: hysterectomy, Onset Age: 45 Social History adopted: No household members: spouse number of children: 1 current occupational status: employed 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 Pacu Nurse in Construction HPI surgical consult-polyp Details: The patient is a 44-year-old female with a history of heavy menstrual bleeding presenting for follow-up after an ultrasound revealed an endometrial polyp and an enlarged uterus. Menstrual Irregularities - Reports heavy menstrual bleeding, sometimes soaking through overnight pads in about 2 hours, causing her to be afraid to move. - Bleeding is not consistently heavy every time, but she has experienced random episodes of heavy bleeding lasting from a week to a couple of weeks. - Since her last appointment, she has had only one heavy bleeding episode. - Bleeding has led to embarrassing accidents in public, causing her to avoid going out during heavy bleeding episodes. - Describes her periods as a little heavier than they used to be. - Initially thought her symptoms were due to perimenopause. Pelvic Pressure - Reports feeling full and experiencing dull, crampy pressure when bending forward, but denies sharp pain. - Describes the sensation as uncomfortable and feels like something's wrong. - Feels pressure when her bladder is full, stating, Anytime I have to go pee real bad, it hurts. Reproductive History - - Delivered one child via vaginal delivery, who is now 27 years old. - Denies desire for future fertility. Past Diagnostic Results: - Ultrasound: Revealed an endometrial polyp and an enlarged uterus measuring almost 12 cm. FINDINGS: Measurements: Uterus: 11.4 cm x 7 cm x 5.3 cm with a volume of 221.1 mL Endometrial Thickness: 11 mm. There is a 1.3 cm by 1.2 cm x 1.1 cm polyp with a stock in the endometrium. Increased vascularity. Right Ovary: 3.3 cm x 3.1 cm x 2 cm with a volume of 10.8 mL. Left Ovary: 3.1 cm x 1.8 cm x 1.9 cm with a volume of 5.4 mL. TRANSABDOMINAL: Uterus: Normal size, myometrial echotexture, and contour. Endometrium: Endometrium measures 11 mm. There is evidence of a 1.3 cm 1.2 cm 1.1 cm polyp on a stalk within the endometrium with increased vascularity. Right ovary: 2.3 cm 1.6 cm 1.7 cm ovarian cyst. Left ovary: Normal size and echotexture. Other: No large pelvic mass identified. Transvaginal sonography was performed to better visualize the endometrium. TRANSVAGINAL: Uterus: Anteverted. Endometrium: Endometrial thickening. 1.3 cm x 1.2 (more content not included)... Normal [facility] Breast imaging reportOrdered By: Flo Calle on 09-17-2025 Study report [facility] Imaging Services [address] [place] [address] SCRN MAMM (CAD)W/YESI BILAT MR#: [id number] Acct: [id number] Name: ZA MARINA Rep #: [id number] : 1980 F 44 From: Jan Calle MD PCP: Care Physician,No Primary Status: REG CLI Study:SCRN MAMM (CAD)W/YESI BILAT Date of Exa m: 12/26/24 Exam# [id number] Ordering Dr: Ioana Navas EXAM: SCRN MAMM (CAD)W/YESI BILAT DATE: 12/26/2024 CLINICAL HISTORY: F, Age 44 y/o , SCREENING FOR BREAST CANCER TECHNIQUE: Procedure Code: BISMWCADBTOM Modality: MG Procedure: SCRN MAMM (CAD)W/YESI BILAT COMPARISON: Prior exam(s) dated prior study dated October 19, 2021.. FINDINGS: TISSUE DENSITY: There are scattered areas of fibroglandular density. Bilateral Breast Mammographic Findings: No significant masses, calcifications or other abnormalities are identified. Stable small benign-appearing bilateral axillary lymph node No suspicious masses, areas of developing architectural distortion, or suspicious calcifications. There has been no significant interval change. BI/SCRN MAMM (CAD)W/YESI BILAT IMPRESSION: Stable bilateral screening mammogram. OVERALL FINAL ASSESSMENT BI-RADS 2: BENIGN RECOMMENDATION: Routine annual follow-up in 1 Year A letter with findings and recommendations will be mailed to the patient. Reading Location: [facility] CC: REINALDO-C Ioana Navas; No Primary Care Physician ~ Mechanic Driver: Signed [facility] Pelvic w/ Transvaginalon Pelvic w/ Transvaginal [facility] [address] [place] [id number] Pelvic w/ Transvaginal MR#: [id number] Acct: [id number] Name: ZA MARINA Rep #: [id number] : 1980 F 44 From: Flo buck MD PCP: Care Physician,No Primary Status: REG CLI Study: Pelvic w/ Transvaginal Date of Exam: 12/26/24 Exam# [id number] Ordering Dr: Ioana Navas PROCEDURE: PELVIC W/ TRANSVAGINAL REASON FOR EXAM: PELVIC PAIN Heavy bleeding. TECHNIQUE: Procedure Code: USPELTVAG Modality: US Procedure: PELVIC W/ TRANSVAGINAL COMPARISON: None FINDINGS: Measurements: Uterus: 11.4 cm x 7 cm x 5.3 cm with a volume of 221.1 mL Endometrial Thickness: 11 mm. There is a 1.3 cm by 1.2 cm x 1.1 cm polyp with a stock in the endometrium. Increased vascularity. Right Ovary: 3.3 cm x 3.1 cm x 2 cm with a volume of 10.8 mL. Left Ovary: 3.1 cm x 1.8 cm x 1.9 cm with a volume of 5.4 mL. TRANSABDOMINAL: Uterus: Normal size, myometrial echotexture, and contour. Endometrium: Endometrium measures 11 mm. There is evidence of a 1.3 cm 1.2 cm 1.1 cm polyp on a stalk within the endometrium with increased vascularity. Right ovary: 2.3 cm 1.6 cm 1.7 cm ovarian cyst. Left ovary: Normal size and echotexture. Other: No large pelvic mass identified. Transvaginal sonography was performed to better visualize the endometrium. TRANSVAGINAL: Uterus: Anteverted. Endometrium: Endometrial thickening. 1.3 cm x 1.2 cm 1 cm endometrial polyp with increased vascularity. Right ovary: 2.3 cm 1.6 cm 1.7 cm ovarian cyst. Left ovary: Normal size and echotexture. Other adnexal findings: None. Cul-de-sac: No free intraperitoneal fluid identified. Tenderness: No tenderness US/Pelvic w/ Transvaginal IMPRESSION: Endometrial polyp measuring 1.3 cm 1.2 cm 1 cm. Right ovarian cyst. Reading Location: [place] [address] CC: REINALDO-Mauri Navas; No Primary Care Physician Mechanic Driver: Signed Normal [facility] SCRN MAMM (CAD)W/YESI BILATo n 12-26-2024 SCRN MAMM (CAD)W/YESI BILAT [facility] Imaging Services [address] [place], [place] [address] SCRN MAMM (CAD)W/YESI BILAT MR#: [id number] Acct: [id number] Name: ZA MARINA Rep #: [id number] : 1980 F 44 From: Flo buck MD PCP: Care Physician,No Primary Status: [facility] Study: SCRN MAMM (CAD)W/YESI BILAT Date of Exam: 12/10 11/02 Exam# [id number] Ordering Dr: Ioana Navas EXAM: SCRN MAMM (CAD)W/YESI BILAT DATE: 12/26/2024 CLINICAL HISTORY: F, Age 44 y/o , SCREENING FOR BREAST CANCER TECHNIQUE: Procedure Code: BISMWCADBTOM Modality: MG Procedure: SCRN MAMM (CAD)W/YESI BILAT COMPARISON: Prior exam(s) dated prior study dated October 19, 2021.. FINDINGS: TISSUE DENSITY: There are scattered areas of fibroglandular density. Bilateral Breast Mammographic Findings: No significant masses, calcifications or other abnormalities are identified. Stable small benign- appearing bilateral axillary lymph node No suspicious masses, areas of developing architectural distortion, or suspicious calcifications. There has been no significant interval change. BI/SCRN MAMM (CAD)W/YESI BILAT IMPRESSION: Stable bilateral screening mammogram. OVERALL FINAL ASSESSMENT BI-RADS 2: BENIGN RECOMMENDATION: Routine annual follow-up in 1 Year A letter with findings and recommendations will be mailed to the patient. Reading Location: [facility] CC: JOAQUIN Navas; No Primary Care Physician Mechanic Driver: Signed Normal [facility] Urine Cultureon 12-21-2024 URC #1,2 Below infection level. GNR lactose lather apprentice [place] Count <1000 Mixed Gram Positive Organisms Mixed Gram Positive Organisms MIXC Mixed contaminants. Submit a new specimen if indicated. Normal [facility] Comment on above: Performed By: #### M [id number] #### [facility] [address] [place], [place], [id number] Laboratory - Chemistry and C hemistry - challengeOrdered By: David Solorzano on 12-18-2024 Bilirubin Ql (U) Negative [facility] Glucose Ql (U) Negative [facility] Ketones Ql (U) Negative [facility] pH (U) 7.0 [pH] [facility] Specific gravity (U) [Rel density] 1.005 [facility] Urobilinogen (U) [Mass/Vol] Negative [facility] - Hematology and Cell countsOrdered By: David Solorzano on 12-18-2024 Hemoglobin Ql (U) Moderate [facility] - Specimen inform ationOrdered By: David Solorzano on 12-18-2024 Clarity (U) Clear [facility] Color (U) YELLOW [facility] - UrinalysisOrder ed By: David Solorzano on 12-18-2024 Nitrite Ql (U) Negative [facility] Protein Ql (U) Negative [facility] No Panel InformationOrdered By: David Solorzano on 12-18-2024 Urine Leukocytes Positive [facility] Urine Non-Hemolyzed Blood [facility] Urgent Care Visit Reporton 0 12-18-2024 Urgent Care Visit Report [facility] [address], [address] [place], [place] [address] OFFICE VISIT Date of Service: 12/18/24 MR#: [id number] Acct: [id number] Name: ZA MARINA Rep #: [id number] : 1980 Provider: YARON Gil Age/Sex: 44/F Location[facility] Status: Signed Intake Vital Signs 12/06/24 11:11 12/18/24 15:56 Height 5 ft 5 in 5 ft 5 in Weight: 186 lb 9 oz 188 lb BMI 31.0 31.2 BP 128/90 H 142/90 H Blood Pressure Location Lt brachial Pulse 84 Pulse Source Monitor Temp 98.3 F Temp Source Oral Pulse Oximetry (%) 97 Oxygen Delivery Method room air Intake Visit Reasons: CONCERN FOR UTI Chief Complaint: UTI Accompanied by: Self Allergies No Known Allergies Allergy (Verified 12/18/24 15:53) Medications ???Medication ???Instructions ???Recorded ???Confirmed ???Type fexofenadine 180 mg tablet 180 mg PO DAILY PRN allergies 10/0912/18/24 History (Margret Allergy) ousaoaww-fkc-kcjp 18 mg-FA 400 tab PO 12/06/24 12/18/24 History mcg-calcium 500 mg-vit K 50 mcg tablet (Women's Multivitamin) norethindrone acetate 1 mg-ethinyl 1 tab PO QDAY #63 tabs 12/13/24 12/18/24 Rx estradiol 20 mcg tablet (Loestrin) nitrofurantoin 100 mg PO Q12H 5 days #10 caps 01/0312/18/24 Rx monohydrate/macrocrystal s 100 mg capsule (Macrobid) Nurse's Note: burning with urination, flank pain, bladder pressure. 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 No complaints of fever, chills, sweats, lightheadedness/dizzines s, nausea/vomiting, chest pain/shortness of breath/dyspnea on exertion, or midback pain. No changes in color/ character of urine or stool. No tcit-xrw-prtqifb products taken to assist. No other associated symptoms and no alleviating/aggravating factors. ROS Const Constitutional: No other (As above) Exam Const General: cooperative, healthy appearing and no acute distress Orientation: alert, awake Chest Chest palpation inspection: normal inspection of the chest Resp Effort Inspection: normal respiratory effort and able to speak in complete sentences Cardio Rate: regular rate Pulses: radial pulses present GI Inspection: normal to inspection Palpation: soft and tender suprapubic (Patient describes upon self-palpation) General: No CVA tenderness Skin General: no rashes or lesions noted Neuro General: patient alert, patient awake Cognition: normal cognition Speech: speech normal Psych Appearance: grossly normal Mental Status: mental status grossly normal Mood: congruent mood Affect: normal affect Speech and Movement: speech and movement normal Attitude: cooperative Diagnoses Urinary tract infection N39.0 Assessment and Plan Assessment and Plan (1) Urinary tract infection: Status: Acute Plan: See POC results; urine sent to lab for C/S. Macrobid as prescribed today. Supportive measures as instructed today. Follow-up with PCP in 3 to 5 days should symptoms not improve, sooner should symptoms only worsen or any other concerns develop. Patient states acknowledging understanding all the above. Results POC Urinalysis Dip (Clinic) Office Urine Color YELLOW Last Edit by Ayleen Sorto MA on 12/18/24 16:06 Office Urine Clarity Clear Last Edit by Ayleen Sorto MA on 12/18/24 16:06 Office Urine Glucose Negative Last Edit by Ayleen Sorto MA on 12/18/24 16:06 Office Urine Ketones Negative Last Edit by Ayleen Sorto MA (more content not included)... 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, [address] T4 freeOrdered By: Ioana rashid on 12-11-2024 Free T4 [Mass/Vol] 1.00 ng/dL 0.76-1.46 [facility] TSH DL <= 0.005 mIU/L QnOrde red By: Ioana Navas on 12-11-2024 TSH Qn 1.210 uIU/mL 0.300-4.200 [facility] Thyroid Stim Hormone (TSH)on 12-11-2024 TSH 1.210 uIU/mL Normal 0.300-4.200 [facility] Comment on above: Performed By: #### L 501.9520, L506.0400 #### [facility] [address] [place], [address] Laboratory - Chemistry and C hemistry - challengeOrdered By: Ioana Navas on 12-06-2024 HCG ( test) Ql (U) Negative [facility] Infection Prevention Specialist Office Visit Reporton 12-06-2024 Infection Prevention Specialist Office Visit Report [facility] [address], [address] [place] [address] OFFICE VISIT Date of Service: 12/06/24 MR#: [id number] Acct: [id number] Name: ZA MARINA Rep #: [id number] : 1980 Provider: JOAQUIN Quinn Age/Sex: 44/F Location: 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 Required: No Is patient in pain?: Yes Pain scale (1-10): 2 Allergies No Known Allergies Allergy (Verified 12/06/24 11:04) Medications ???Medication ???Instructions ???Recorded ???Confirmed ???Type fexofenadine 180 mg tablet 180 mg PO DAILY PRN allergies 10/0912/06/24 History (Margret Allergy) [id number] 18 mg-FA 400 tab PO 12/06/24 12/06/24 History mcg-calcium 500 mg-vit K 50 mcg tablet (Women's Multivitamin) Is last menstrual period known: Yes Last Menstrual Period: 11/08/24 Post menopausal: No Patient : No : No Control Method: vasectomy PFS Medical History (Updated 12/06/24 @ 12:52 by JOAQUIN Sullivan) Gastrocnemius strain, left Kidney stones Dental cavity Surgical History History of placement of ear tubes Cleft palate Family History Aunt Thyroid cancer Grandmother Ovarian cancer Mother H/O: hysterectomy, Onset Age: 45 Social History adopted: No household members: spouse number of children: 1 current occupational status: employed 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 She is here to establish. She reports she soaking through overnight pads in about 2 hours; this happens for about 4 days. Her regularity varies; there are times she goes a full month and other times she starts a menses just 2 weeks later. She has noticed this has been worsening over the past year. She reports she has noticed an increase in her pelvic cramping and heaviness. Feels this with her menses as well as when not on her menses. Last PAP: 2021; normal. HPV neg. History of abnormal PAP: no Last mammogram: 2021; normal. History of abnormal mammogram: no. Colon cancer screening: due Other preventative health care screenings: no current PCP Female Reproductive History Last Menstrual Period: 11/08/24 Cycle Length: 21-35 Bleeding Duration: 5 Questions: metrorrhagia: No, sexually active: Yes (vasectomy), dyspareunia: No and PCB: No ROS Const Constitutional: Denies chills, fatigue, fever(s), headache(s) or weight loss Eyes Eyes: Denies change in vision ENT ENT: Denies dizziness Cardio Card: Denies chest pain at rest or palpitations Resp Resp: Denies cough or dyspnea GI GI: Denies abdominal pain, constipation or nausea : Reports as per HPI, menorrhagia and pelvic pain; Denies difficulty voiding, dysuria, hematuria, nipple discharge, prolapse symptoms, urinary incontinence, vaginal discharge, vaginal dryness, vaginal odor or vaginal pruritus Skin Skin/Breast: Denies alopecia, rash, breast mass, breast pain, breast skin changes or nipple discharge Neuro Neuro: Denies dizziness Psych Psych: Denies anxiety or depression Endo Endo: Denies cold intolerance, excessive sweating or heat intolerance Exam Const General: cooperative, healthy appearing, comfortable, no acute distress, well groomed and well hydrated Nutritional Appearance: well nourished Orientation: alert, awake and oriented x3 HENMT Head: normal to inspection and normocephalic Ears: hearing grossly normal bilaterally and external ears normal Nose: external nose (more content not included)... Normal [facility] Absolute lymphocyte countOrd ered By: Marco Lambert on 10-27-2024 Lymphocytes Auto (Unsp spec) [#/Vol] 2.80 10*3/uL 0.83-4.51 [facility] Absolute neutrophil countOrd ered By: Marco Lambert on 10-27-2024 Neutrophils (Bld) [#/Vol] 6.1 10*3/uL 2.0-7.7 [facility] Anion gap in Serum or Plasma Ordered By: Marco Lambert on 10-27-2024 Anion gap [Moles/Vol] 12 mmol/L 5-15 [facility] Automated blood erythrocyte countOrdered By: Marco Lambert on 10-27-2024 RBC (Bld) [#/Vol] 4.84 10*6/uL Normal 4.2-5.4 [facility] Comment on above: Performed By: #### L 500.2500, L100.0100, L501.4021 #### [facility] [address] [place], [place], [id number] Automated blood hematocrit ( percentage)Ordered By: Marco Lambert on 10-27-2024 Hematocrit (Bld) [Volume fraction] 40.9 % Normal 37-47 [facility] Comment on above: Performed By: #### L 500.2500, L100.0100, L501.4021 #### [facility] [address] [facility] [place], [place], [address] Automated lymphocyte count a s percentage of total leukocytesOrdered By: Marco Lambert on 10-27-2024 Lymphocytes/100 WBC Auto (Unsp spec) 29.0 % [facility] BUN/creatinine ratioOrdered By: Marco Lambert on 10-27-2024 Urea nitrogen/Creatinine [Mass ratio] 17.2 mg/mg - [facility] Basic Metabolic Profile (BMP )on 10-27-2024 BUN/CRE 17.2 RATIO Normal - [facility] Comment on above: Performed By: #### L 500.2500, L100.0100, L501.4021 ####[facility] [address] [place], [address] Calcium [Mass/Vol] 8.9 mg/dL Normal 7.6-11.0 [facility] Comment on above: Performed By: #### L 500.2500, L100.0100, L501.4021 ####[facility] [address] [place], [address] Chloride [Moles/Vol] 104 mmol/L Normal 98-108 [facility] Comment on above: Performed By: #### L 500.2500, L100.0100, L501.4021 ####[facility] [address] [place], [address] CO2 [Moles/Vol] 21.5 mmol/L Normal 21.0-32.0 [facility] Comment on above: Performed By: #### L 500.2500, L100.0100, L501.4021 ####[facility] [address] [place], [address] Creatinine [Mass/Vol] 0.73 mg/dL Normal 0.70-1.20 [facility] Comment on above: Performed By: #### L 500.2500, L100.0100, L501.4021 ####[facility] [address] [place], [address] ECRCL 104.53 ml/min Normal 50-250 [facility] Comment on above: Performed By: #### L 500.2500, L100.0100, L501.4021 ####[facility] [address] [place], [address] GAP 12 Normal 5-15 [facility] Comment on above: Performed By: #### L 500.2500, L100.0100, L501.4021 ####[facility] [address] [place], [address] GFR/1.73 sq M.predicted among non-blacks MDRD (S/P/Bld) [Vol rate/Area] 103 mL/min/{1.73_m2} Normal >60 [facility] Comment on above: Result Comment: mL/m in/1.73m2 CKD-EPI Creatinine Equation (2020) Performed By: #### L 500.2500, L100.0100, L501.4021 ####[facility] [address] [place], [address] Glucose [Mass/Vol] 101 mg/dL High 70-99 [facility] Comment on above: Performed By: #### L 500.2500, L100.0100, L501.4021 ####[facility] [address] [place], [address] Potassium [Moles/Vol] 3.9 mmol/L Normal 3.3-5.1 [facility] Comment on above: Performed By: #### L 500.2500, L100.0100, L501.4021 ####[facility] [address] [place], [address] Sodium [Moles/Vol] 138 mmol/L Normal 133-145 [facility] Comment on above: Performed By: #### L 500.2500, L100.0100, L501.4021 ####[facility] [address] [place], [address] Urea nitrogen [Mass/Vol] 13 mg/dL Normal 4-19 [facility] Comment on above: Performed By: #### L 500.2500, L100.0100, L501.4021 ####[facility] [address] [place], [address] Basophil percentageOrdered B y: Marco Lambert on 10-27-2024 Basophils/100 WBC (Bld) 0.5 % Normal 0-1 [facility] Comment on above: Performed By: #### L 500.2500, L100.0100, L501.4021 #### [facility] [address] [place], [address] CBC W/Diff, Automatedon 10-09 Absolute Lymph 2.80 X10 3/uL Normal 0.83-4.51 [facility] Comment on above: Performed By: #### L 500.2500, L100.0100, L501.4021 #### [facility] [address] [place], [address] Absolute Neut 6.1 X10 3/uL Normal 2.0-7.7 [facility] Comment on above: Performed By: #### L 500.2500, L100.0100, L501.4021 #### [facility] [address] [place], [address] IG% 0.500 Normal 0.0-0.9 [facility] Comment on above: Result Comment: IG% - Immature Granulocytes (promyelocytes, myelocytes and metamyelocytes) > 1% indicates that a LEFT SHIFT is Present. Performed By: #### L 500.2500, L100.0100, L501.4021 #### [facility] [address] [place], [address] Lymphocytes/100 WBC (Bld) 29.0 % Normal 19-41 [facility] Comment on above: Performed By: #### L 500.2500, L100.0100, L501.4021 #### [facility] [address] [place], [address] Nucleated RBC (Bld) [#/Vol] 0 10*3/uL Normal 0-5 [facility] Comment on above: Performed By: #### L 500.2500, L100.0100, L501.4021 #### [facility] [address] [place], [address] RDW SD 41.8 fl Normal 35.1-43.9 [facility] Comment on above: Performed By: #### L 500.2500, L100.0100, L501.4021 #### [facility] [address] [place], [place], [address] Carbon dioxide, total [Moles /volume] in Central venous bloodOrdered By: Marco Lambert on 10-27-2024 CO2 [Moles/Vol] 21.5 mmol/L 21.0-32.0 [facility] Chest PA and Lateralon 10-27 Chest PA and Lateral [facility] [address] [place] [address] Chest PA and Lateral MR#: [id number] Acct: [id number] Name: ZA MARINA Rep #: [id number] : 1980 F 44 From: Jessy Castelan PCP: Dr. Melodie Neri MD Status: DEP ER Study: Chest PA and Lateral Date of Exam: 10/27/24 Exam# [id number] Ordering Dr: Marco Lambert DO PROCEDURE: CHEST PA AND LATERAL 10/27/2024 REASON FOR EXAM: CHEST PAIN TECHNIQUE: CHEST PA AND LATERAL COMPARISON: None FINDINGS: Hardware: Cardiac leads overlie the chest. Heart: Heart size and configuration are within normal limits. Mediastinum: Pulmonary vasculature and hilar structures are unremarkable. Trachea is midline. Mediastinal silhouette is within normal limits. Lungs: Expanded and clear without evidence of atelectasis, consolidation, effusion or pneumonic infiltrate. Bones: No acute osseous abnormality is noted. RAD/Chest PA and Lateral IMPRESSION: No acute cardiopulmonary process is identified radiographically. Reading Location: [id number] CC: Dr. Melodie Neri MD; Dr. 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 Melodie Neri MD Status:REG ER Location: ED HPI History of Present Illness Chief Complaint: Chest Pain Narrative Narrative: Chief complaint and HPI: Left shoulder blade pain. 44-year-old female with no significant past medical history presents for evaluation of left shoulder blade pain. Patient states that she woke up with pain in this area yesterday morning in which she took ibuprofen and pain resolved. States it reoccurred this morning when she woke up. States its mostly located in the left shoulder blade/scapular region and radiates into her left shoulder. Triage note states that it radiates into her chest which she denies this to me. She denies any chest pain. She denies any numbness or tingling. Denies any trauma or injury. She denies any fever, chills, shortness of breath, abdominal pain, nausea, vomiting, weakness. Took 2 ibuprofen earlier this morning. Review of systems: See HPI Medications: As listed on the chart Allergies: As listed on the chart PFSH: Per chart Vital signs: As listed on the chart. Reviewed. Physical exam: Gen: A O x3, NAD Head: Normocephalic, atraumatic Eyes: No sclera icterus, conjunctiva clear ENT: Moist mucous membranes Neck: Trachea midline, No JVD, full range of motion, nontender CV: RRR, no murmurs, no peripheral edema Resp: Lungs CTA BL, no w/r/c GI: Abd soft, non-distended, non-tender, no r/r/g Musc: Full ROM, no deformity, no midline spinal tenderness, no bony step-off, patient has tenderness to palpation of the paraspinal musculature of the left thoracic spine near the scapula-muscles are tense-similar pain with palpation, radial pulse +2 bilaterally Skin: Warm, dry Neuro: Alert, oriented, grossly intact, sensation intact Psych: Cooperative, appropriate mood and affect [facility] Medical History (Updated 10/27/24 @ 07:[address] Marco Lambert, ) Kidney stones Dental cavity Home Medications ???Medication ???Instructions ???Recorded ???Last Taken ???Type cyclobenzaprine 5 mg tablet 5 mg PO TID PRN muscle spasm 3 Unknown Rx days #9 tabs fexofenadine 180 mg tablet 180 mg PO DAILY PRN allergies 10/09 01/03 Unknown History (Margret Allergy) Allergy/AdvReac Type Severity Reaction Status Date / Time No Known Allergies Allergy Verified 10/27/24 06:26 Surgical History History of placement of ear tubes Cleft palate Social History Smoking Status: Former smoker alcohol intake: never EXAM Physical Exam Const Vital Signs: 10/27/24 06:22 10/27/24 07:13 Temperature 98.0 F Temperature Source Oral Pulse Rate 91 Respiratory Rate 16 Respiratory Pattern Normal Blood Pressure 153/94 H Blood Pressure Mean 113 Pulse Ox 100 Oxygen Delivery Method Room Air MDM MDM MDM Narrative Medical decision making narrative: 44-year-old female with no significant past medical history presents for evaluation of left shoulder blade pain. Patient states that she woke up with pain in this area yesterday morning in which she took ibuprofen and pain resolved. States it reoccurred this morning when she woke up. States its mostly located in the left shoulder blade/scapular region and radiates into her left shoulder. Triage note states that it radiates into her chest which she denies this to me. On physical exam, patient has tenderness to palpation of the paraspinal musculature in this region. States with palpation it feels similar to the pain that she is experiencing. I suspect her symptoms are secondary to myofascial spasm, low suspicion for ACS. Toradol and cyclobenzaprine ordered for symptoms. Basic labs ordered with chest x-ray and EKG. EKG and chest x-ray reviewed see below. CBC unremarkable. BMP and troponin pending at this time. Patient is well-known to me. Provider, Dr. Gaffney. If laboratory workup is unremarkable, plan will be to discharge home and follow-up with primary care physician. EKG: Interpreted by me/EM physician: EKG shows normal sinus rhythm without any acute ischemic changes. Heart rate 95 Diagnostic: Interpreted by me/EM physician: Chest x-ray without cardiomegaly, pneumothorax, pneumonia, effusion. Impression: 1. Left thoracic back Lab Data Labs: Laboratory Results - last 24 hr 10/27/24 06:36 WBC 9.6 RBC 4.84 Hgb 13.9 Hct 40.9 MCV 84.5 MCH 28.7 MCHC 34.0 RDW Std Deviation 41.8 RDW Coeff of Kady 13.4 Plt Count 308 MPV 9.7 (more content not included)... Normal [facility] Eosinophil percentageOrdered By: Marco Lambert on 10-27-2024 Eosinophils/100 WBC (Bld) 2.1 % Normal 0-5 [facility] Comment on above: Performed By: #### L 500.2500, L100.0100, L501.4021 #### [facility] [address] [facility] [place], [place], [address] Erythrocyte distribution wid th ratioOrdered By: Marco Lambert on 10-27-2024 Erythrocyte distribution width (RBC) [Ratio] 13.4 % Normal 11.6-14.6 [facility] Comment on above: Performed By: #### L 500.2500, L100.0100, L501.4021 #### [facility] [address] [facility]. [place], [place], [address] Erythrocyte distribution wid th standard deviationOrdered By: Marco Wong on 10-27-2024 Erythrocyte distribution width (RBC) [Ratio] 41.8 fl 35.1-43.9 [facility] Glomerular filtration rate ( GFR) estimation/1.73 sq m using serum, plasma, or whole bOrdered By: Marco Lambert on 10-27-2024 GFR/1.73 sq M.predicted among non-blacks MDRD (S/P/Bld) [Vol rate/Area] 103 mL/min/{1.73_m2} >60 [facility] Comment on above: mL/min/1.73m2 CKD-EP I Creatinine Equation (2020) Hemoglobin measurementOrdere d By: Marco Lambert on 10-27-2024 Hemoglobin (Bld) [Mass/Vol] 13.9 g/dL Normal 12.0-15.0 [facility] Comment on above: Performed By: #### L 500.2500, L100.0100, L501.4021 #### [facility] [address] [place], [address] Immature granulocytes/100 WB C Auto (Bld)Ordered By: Marco Lambert on 10-27-2024 Immature granulocytes/100 WBC (Bld) 0.500 % 0.0-0.9 [facility] Comment on above: IG% - Immature Granu locytes (promyelocytes, myelocytes and metamyelocytes) > 1% indicates that a LEFT SHIFT is Present. L501.4021on 10-27-2024 Trop T High Sen < 6 Normal <=14 [facility] Comment on above: Performed By: #### L 500.2500, L100.0100, L501.4021 ####[facility] [address] [place], [address] MCV (mean corpuscular volume ) determinationOrdered By: Marco Lambert on 10-27-2024 MCV (RBC) [Entitic vol] 84.5 fL Normal 81-99 [facility] Comment on above: Performed By: #### L 500.2500, L100.0100, L501.4021 #### [facility] [address] [place], [address] Mean corpuscular hemoglobin (MCH) determinationOrdered By: Marco Lambert on 10-27-2024 MCH (RBC) [Entitic mass] 28.7 pg Normal 27.0-32.0 [facility] Comment on above: Performed By: #### L 500.2500, L100.0100, L501.4021 #### [facility] [address] [place], [address] Mean corpuscular hemoglobin concentration (MCHC) determinationOrdered By: Marco Lambert on 10-27-2024 MCHC (RBC) [Mass/Vol] 34.0 g/dL Normal 32-36 [facility] Comment on above: Performed By: #### L 500.2500, L100.0100, L501.4021 #### [facility] [address] [place], [address] Mean platelet volume determi nationOrdered By: Marco Lambert on 10-27-2024 Platelet mean volume (Bld) [Entitic vol] 9.7 fL Normal 6.2-12.0 [facility] Comment on above: Performed By: #### L 500.2500, L100.0100, L501.4021 #### [facility] [address] [place], [address] Monocyte percentageOrdered B y: Marco Lambert on 10-27-2024 Monocytes/100 WBC (Bld) 5.0 % Normal 0-10 [facility] Comment on above: Performed By: #### L 500.2500, L100.0100, L501.4021 #### [facility] [address] [place], [address] Neutrophil percentageOrdered By: Marco Lambert on 10-27-2024 Neutrophils/100 WBC (Bld) 62.9 % Normal 47-70 [facility] Comment on above: Performed By: #### L 500.2500, L100.0100, L501.4021 #### [facility] [address] [place], [address] Nucleated red blood cell per centageOrdered By: Marco Lambert on 10-27-2024 Nucleated RBC/100 WBC (Bld) [Ratio] 0 % 0-5 [facility] Platelet countOrdered By: Azael Lambert on 10-27-2024 Platelets (Bld) [#/Vol] 308 10*3/uL Normal 150-450 [facility] Comment on above: Performed By: #### L 500.2500, L100.0100, L501.4021 #### [facility] [address], [id number] Potassium measurement (mass/ volume)Ordered By: Marco Lambert on 10-27-2024 Potassium (Unsp spec) [Mass/Vol] 3.9 mmol/L 3.3-5.1 [facility] Serum creatinine measurement (mass/volume)Ordered By: Marco Lambert on 10-27-2024 Creatinine [Mass/Vol] 0.73 mg/dL 0.70-1.20 [facility] Serum glucose measurement (m ass/volume)Ordered By: Marco Lambert on 10-27-2024 Glucose [Mass/Vol] 101 mg/dL High 70-99 [facility] Serum or plasma calcium shukri urement (mass/volume)Ordered By: Marco Wong on 10-27-2024 Calcium [Mass/Vol] 8.9 mg/dL 7.6-11.0 [facility] Serum or plasma urea nitroge n measurement (mass/volume)Ordered By: Marco Lambert on 10-27-2024 Urea nitrogen [Mass/Vol] 13 mg/dL 4-19 [facility] Sodium levelOrdered By: Abdoulaye Lambert on 10-27-2024 Sodium [Moles/Vol] 138 mmol/L 133-145 [facility] Troponin T.cardiac [Mass/vol ume] in Serum or Plasma by High sensitivity methodOrdered By: Marco Lambert on 10-27-2024 Troponin T.cardiac High sensitivity method [Mass/Vol] < 6 ng/L <14 [facility] White blood cell (WBC) count Ordered By: Marco Lambert on 10-27-2024 WBC (Bld) [#/Vol] 9.6 10*3/uL Normal 4.4-11.0 [facility] Comment on above: Performed By: #### L 500.2500, L100.0100, L501.4021 #### [facility] [address] [place], [address] Orthopedic Visit Reporton Orthopedic Visit Report [facility] [address] [place] [address] [address] [place] [address] OFFICE VISIT Date of Service: 07/25/24 MR#: [id number] Acct: [id number] Name: ZA MARINA Rep #: [id number] : 1980 Provider: JOAQUIN loyd Age/Sex: 44/F [place] [facility] Status: Signed Intake Vital Signs 07/25/24 08:31 Height 5 ft 5 in Intake Visit Reasons: LEFT CALF Is patient in pain?: Yes Allergies No Known Allergies Allergy (Verified 07/25/24 09:11) [facility] Medical History Dental cavity Surgical History Cleft palate History of placement of ear tubes Social History Smoking Status: Former smoker alcohol intake: never HPI LEFT CALF Details: This documentation accurately reflects the service provided and the decisions made by me, JOAQUIN Quezada 07/25/24 0905. Part of today???s visit was [...] time This document has been transcribed using SeeWhy dictation software. There may be incorrect words, spelling, and punctuation. 07/25/24 1016 Date Becky Oliva Signature: Date (if applicable) CC: Normal [facility] Cervical or vagninal specime n microscopic examination by cytology stain (reported ason 07-09-2021 Cytology report Cyto stain Doc (Cvx/Vag) Comment [facility] Work Phone: Comment on above: The Pap [...] (HPV) 16, 18, 31, 33,on 07-09-2021 HPV 16+18+31+33+35+39+45+51 +52+56+58+59+66+68 DNA Probe+sig amp Ql (Cvx) Negative Negative [facility] Work Phone: Comment on above: This nucleic acid am plification test detects fourteen high-risk HPV types (16,18,31,33,35,39,45,51,52,56,58,59,66,68)without differentiation.Performed at: [address], [place] [id number] Director: Mone Perez MD, Phone: [phone] at: = - [facility] [place], [place] [id number] Director: Mone Perez MD, Phone: [phone] Laboratory - Cytologyon 06-11 Associate Professor [employer] Cyto stain Nom (Cvx/Vag) [ID] Comment [facility] Work Phone: Comment on above: Nora Rosa hnologist (ASCP) Laboratory - Miscellaneous t estson 07-09-2021 Service comment (Unsp spec) [Interp] Comment [facility] Work Phone: Comment on above: This liquid based Th inPrep(R) pap test was screened withthe use of an image guided system. Service comment (Unsp spec) [Interp] . [facility] Work Phone: No Panel Informationon 07-09 Pathology report final diagnosis Narrative Comment [facility] Work Phone: Comment on above: NEGATIVE FOR INTRAEP ITHELIAL LESION OR MALIGNANCY. Absolute lymphocyte counton 05-20-2021 Lymphocytes Auto (Unsp spec) [#/Vol] 2.55 10*3/uL 0.83-4.51 [facility] Work Phone: Basophil percentageon 2021 Basophils/100 WBC (Bld) 0.5 % 0-1 [facility] Work Phone: Bilirubin [Mass/Vol] 0.30 mg/dL 0.20-1.00 [facility] Work Phone: Comment on above: For patients on eltr ombopag therapy, use of Dimension Spickard TBIL is not recommended. Chloride [Moles/Vol] 107 mmol/L 98-107 [facility] Work Phone: Eosinophils/100 WBC (Bld) 2.3 % 0-5 [facility] Work Phone: Glucose [Mass/Vol] 84 mg/dL 74-106 [facility] Work Phone: Neutrophils (Bld) [#/Vol] 5.1 10*3/uL 2.0-7.7 [facility] Work Phone: Neutrophils/100 WBC (Bld) 61.5 % 47-70 [facility] Work Phone: Potassium [Moles/Vol] 3.8 mmol/L 3.5-5.1 [facility]: Protein [Mass/Vol] 7.4 g/dL 6.4-8.2 [facility] Work Phone: Sodium [Moles/Vol] 140 mmol/L 136-145 [facility] Work Phone: WBC (Bld) [#/Vol] 8.3 10*3/uL 4.4-11.0 [facility] Work Phone: Blood erythrocytes count (nu mber/volume)on 05-20-2021 RBC (Bld) [#/Vol] 4.86 10*6/uL 4.2-5.4 [facility] Work Phone: Blood hemoglobin measurement (mass/volume)on 05-20-2021 Hemoglobin (Bld) [Mass/Vol] 14.4 g/dL 12.0-15.0 [facility] Work Phone: Blood lymphocytes/100 leukoc yteson 05-20-2021 Lymphocytes/100 WBC (Bld) 30.7 % 19-41 [facility] Work Phone: Blood monocytes/100 leukocyt eson 05-20-2021 Monocytes/100 WBC (Bld) 4.8 % 0-10 [facility] Work Phone: Blood platelet mean volumeon 05-20-2021 Platelet mean volume (Bld) [Entitic vol] 10.3 fL 6.2-12.0 [facility] Work Phone: Determination of erythrocyte mean corpuscular volume (MCV)on 05-20-2021 MCV (RBC) [Entitic vol] 88.3 fL 81-99 [facility] Work Phone: Hematocrit Auto (Bld) [Volum e fraction]on 05-20-2021 Hematocrit (Bld) [Volume fraction] 42.9 % 37-47 [facility] Work Phone: Laboratory - Chemistry and C hemistry - challengeon 05-20-2021 ALP [Catalytic activity/Vol] 89 U/L 45-117 [facility] Work Phone: ALT [Catalytic activity/Vol] 16 U/L 13-56 [facility] Work Phone: CO2 [Moles/Vol] 24.0 mmol/L 21.0-32.0 [facility] Work Phone: Free T4 [Mass/Vol] 0.94 ng/dL 0.76-1.46 [facility] Work Phone: Globulin (S) [Mass/Vol] 3.4 g/dL 2.2-4.2 [facility] Work Phone: Urea nitrogen/Creatinine [Mass ratio] 15.3 mg/mg 10-20 [facility] Work Phone: Laboratory - Hematology and Cell countson 05-20-2021 Erythrocyte distribution width (RBC) [Entitic vol] 41.5 fL 35.1-43.9 [facility] Work Phone: Erythrocyte distribution width (RBC) [Ratio] 12.8 % 11.6-14.6 [facility] Work Phone: Immature granulocytes/100 WBC (Bld) 0.200 % 0.0-0.9 [facility] Work Phone: Comment on above: IG% - Immature Granu locytes (promyelocytes, myelocytes and metamyelocytes) > 1% indicates that a LEFT SHIFT is Present. MCH (RBC) [Entitic mass] 29.6 pg 27.0-32.0 [facility] Work Phone: Nucleated RBC/100 WBC (Bld) [Ratio] 0 % 0-5 [facility] Work Phone: MCHC Auto (RBC) [Mass/Vol]on 05-20-2021 MCHC (RBC) [Mass/Vol] 33.6 g/dL 32-36 [facility] Work Phone: No Panel Informationon 05-20 Estimated GFR (MDRD) Amer 114 mL/min >60 [facility] Work Phone: Comment on above: GFR Calc Estimated GFR (MDRD) Non-Af Amer 94 mL/min >60 [facility] Work Phone: Comment on above: Non- GFR Calc Thyroglobulin Antibody < 1.0 IU/mL [facility] Work Phone: Comment on above: Thyroglobulin Antibo dy measured by Juan [employer] Thyroglobulin Level 10.4 ng/mL [facility] Work Phone: Comment on above: According to the [facility] Academy of Clinical Biochemistry,the reference interval for Thyroglobulin (TG) should berelated to euthyroid patients and not for patients whounderwent thyroidectomy. TG reference intervals for thesepatients depend on the residual mass of the thyroid tissueleft after surgery. Establishing a post-operative baselineis recommended. The assay limit of quantitation is 0.1ng/mLThyroglobulin measured by Juan [place] [employer] Thyroid Stimulating Hormone (TSH) 1.36 uIU/mL 0.358-3.74 [facility] Work Phone: Platelets bldon 05-20-2021 Platelets (Bld) [#/Vol] 302 10*3/uL 150-450 [facility] Work Phone: Serum or plasma albumin shukri urement (mass/volume)on 05-20-2021 Albumin [Mass/Vol] 4.0 g/dL 3.2-5.0 [facility] Work Phone: Serum or plasma albumin/glob ulin mass ratioon 05-20-2021 Albumin/Globulin [Mass ratio] 1.2 {ratio} 0.9-2.4 [facility] Work Phone: Serum or plasma calcium shukri urement (mass/volume)on 05-20-2021 Calcium [Mass/Vol] 8.7 mg/dL 8.5-10.1 [facility] Work Phone: Serum or plasma creatinine m easurement (mass/volume)on 05-20-2021 Creatinine [Mass/Vol] 0.72 mg/dL 0.55-1.02 [facility] Work Phone: Comment on above: The validity of the calculated GFR & GFRAA in patients over 70 years has not been determined. Clinical correlation is essential. Serum or plasma thyroperoxid ase antibody assay (units/volume)on 05-20-2021 TPO Ab Qn [IU]/mL [facility] Work Phone: Comment on above: Performed at: [facility] [employer] [place] [id number] Director: Albin Ortiz PhD, Phone: [phone] Serum or plasma urea nitroge n measurement (mass/volume)on 05-20-2021 Urea nitrogen [Mass/Vol] 11 mg/dL 7-18 [facility] Work Phone: Thin prep Papanicolaou smear with manual screeningon 05-20-2021 Thin prep Papanicolaou smear with manual screening 8 U/L 15-37 [facility] Work Phone: Thin prep Papanicolaou smear with manual screening 9 5-15 [facility] Work Phone: CT KIDNEY STONEon 03-12-2021 CT [...] dome has been excluded from the imaging [id number]. Evaluation of the visceral organs is limited [...] stranding, likely inflammatory in nature. No right-sided hydronephrosis/nephrolit hiasis/hydroureter. The bladder is incompletely distended. Anteverted uterus. [...] at the level of L2-L3. No right-sided hydronephrosis/hydrouret er/nephrolithiasis. Dominant follicle in the left ovary measuring 12 mm. Slightly lobulated contour of the uterus. Underlying adenomyosis cannot be excluded. If desired, this can be further evaluated with MRI pelvis. No evidence of bowel obstruction. The appendix is normal in caliber. Small amount of stool burden. Nonspecific mild hepatomegaly. [employer] Workstation ID: [id number] Dictated by: VERO ALCANTARA on TueMar 12, 2021 4:14:34 PM EST Transcribed by: DI VALENTINE on Brandy Mar 12, 2021 4:31:12 PM EST Finalized by: VERO ALCANTARA on Sun Mar 15, 2021 10:13:52 AM EST Normal [facility] Comment on above: Order Comment: Injur y/Trauma or Illness?:Illness/Other How long have you had these symptoms (acute/chronic)?:Acute Reason for exam?:Flank pain, kidney stone suspected Type of Exam?:Initial Additional signs and symptoms?:pain today, pt is on menstral cycle CT PULMONARY ARTERIESon 12-0 CT PULMONARY ARTERIES EXAMINATION: CT PULMONARY ARTERIES [...] stone study performed earlier the same day. [facility] Workstation ID: [id number] Dictated by: BAILEE MORENO on TueMar 12, 2021 6:22:54 PM EST Transcribed by: DI VALENTINE on Brandy Mar 12, 2021 6:37:59 PM EST Finalized by: BAILEE MORENO on [facility] Mar 12, 2021 6:43:03 PM EST [facility] Comment on above: Order Comment: Injur y/Trauma [...] osseous structure. IMPRESSION: No acute cardiopulmonary findings. /[facility] Workstation ID: [id number] Dictated by: VERO ALCANTARA on TueMar 12, 2021 4:18:45 PM EST Transcribed by: DI VALENTINE on [facility] Mar 12, 2021 4:42:16 PM EST Finalized by: VERO ALCANTARA on [place] Mar 15, 2021 10:11:56 AM EST [facility] Comment on above: Order Comment: Injur y/Trauma or Illness?:Illness/Other How long have you had these symptoms (acute/chronic)?:Acute Reason for exam?:cp History of cancer?:. Surgeries, chemotherapy, or radiation?:. Type of Exam?:Initial Additional signs and symptoms?:midsternal Vital Signs Date Time Vital Sign Value Performing Clinician Ramiro wheeler 01-30-2025 08:09-0400 Body height 165.[address] Marco Lambert DO Work Phone: 5(505)607-712016 [place] [address] 01-30-2025 08:07-0400 Body mass index (BMI) [Ratio] 30.9 kg/m2 Dr. Marco Lambert DO Work Phone: 5(006)450-709516 [place] [address] 01-30-2025 08:07-0400 Body weight 84.[address] Marco Lambert DO Work Phone: 1(342)904-048816 [place] [address] 01-30-2025 08:07-0400 Diastolic blood pressure 91 mm[Hg] Dr. Marco Lambert DO Work Phone: 4(318)411-173216 [place] [address] 01-30-2025 08:07-0400 Systolic blood pressure 146 mm[Hg] Dr. Marco Lambert DO Work Phone: 4(000)596-286764 [place] [address] 12-18-2024 15:56-0400 Body height 165.[address] Marco Lambert DO Work Phone: 6(682)126-352564 [place] [address] 12-18-2024 15:56-0400 Body mass index (BMI) [Ratio] 31.2 kg/m2 Dr. Marco Lambert DO Work Phone: 7(582)651-201664 [place] [address] 12-18-2024 15:56-0400 Body temperature 98.3 [degF] Dr. Marco Lambert DO Work Phone: 7(503)386-588916 [place] [address] 12-18-2024 15:56-0400 Body weight 85.[address] Marco Lambert DO Work Phone: 5(440)662-410816 [place] [address] 12-18-2024 15:56-0400 Diastolic blood pressure 90 mm[Hg] Dr. Marco Lambert DO Work Phone: 9(938)293-659416 [place] [address] 12-18-2024 15:56-0400 Heart rate 84 /min Dr. Marco Lambert DO Work Phone: 1(871)089-246116 [place] [address] 12-18-2024 15:56-0400 SaO2% (BldA) [Mass fraction] 97 % Dr. Marco Lambert DO Work Phone: [facility] 12-18-2024 15:56-0400 Systolic blood pressure 142 mm[Hg] Dr. Marco Lambert DO Work Phone: 4(656)344-962360 [address] 12-06-2024 11:11-0400 Body height 165.[address] Marco Lambert DO Work Phone: 6(588)692-595164 [place] [address] 12-06-2024 11:11-0400 Body mass index (BMI) [Ratio] 31 kg/m2 Dr. Marco Lambert DO Work Phone: 2(784)020-823064 [place] [address] 12-06-2024 11:11-0400 Body weight 84.[address] Marco Lambert DO Work Phone: 7(635)525-424964 [place] [address] 12-06-2024 11:11-0400 Diastolic blood pressure 90 mm[Hg] Dr. Marco Lambert DO Work Phone: 3(096)291-934160 [address] 12-06-2024 11:11-0400 Systolic blood pressure 128 mm[Hg] Dr. Marco Lambert DO Work Phone: [facility] 10-27-2024 08:00-0400 Body temperature 98.6 [degF] Dr. Di Menjivar MD Work Phone: [facility] 10-27-2024 08:00-0400 Diastolic blood pressure 77 mm[Hg] Dr. Di Menjivar MD Work Phone: [facility] 10-27-2024 08:00-0400 Heart rate 84 /min Dr. Di Menjivar MD Work Phone: [facility] 10-27-2024 08:00-0400 Respiratory rate 17 /min Dr. Di Menjivar MD Work Phone: [facility] 10-27-2024 08:00-0400 SaO2% (BldA) [Mass fraction] 100 % Dr. Di Menjivar MD Work Phone: [facility] 10-27-2024 08:00-0400 Systolic blood pressure 133 mm[Hg] Dr. Di Menjivar MD Work Phone: [facility] 10-27-2024 06:22-0400 Body height 165.[address] Di Menjivar MD Work Phone: [facility] 10-27-2024 06:22-0400 Body mass index (BMI) [Ratio] 31 kg/m2 Dr. Di Menjivar MD Work Phone: [facility] 10-27-2024 06:22-0400 Body weight 84.[address] Di Menjivar MD Work Phone: [facility] Encounters Encounter Date Encounter Type Care Provider Facility Start: 01-30-2025 End: 01-30-[address] Azalia Landeros DO -[facility] Work Phone: Start: 01-30-2025 End: 01-30-2025 ambulatory No Primary Care Physician [facility] Start: 12-26-2024 End: 12-26-[address] Marco Lambert DO Work Phone: -[facility] Start: 12-26-2024 End: 12-26-2024 Patient encounter procedure Ioana NUÑEZ -[facility] Work Phone: Start: 12-26-2024 End: 12-26-2024 ambulatory No Primary Care Physician Facility:[facility] Start: 12-18-2024 End: 12-18-2024 Patient encounter procedure David MARRUFO -[facility] Work Phone: Start: 12-18-2024 End: 12-18-[address] Marco Lambert DO Work Phone: -[facility] Start: 12-18-2024 End: 12-18-2024 ambulatory No Primary Care Physician Facility:[facility] Start: 12-11-2024 End: 12-11-[address] Marco Lambert DO Work Phone: -[facility] Start: 12-11-2024 End: 12-11-2024 Patient encounter procedure Ioana NUÑEZ -[facility] Work Phone: Start: 12-11-2024 End: 12-11-2024 ambulatory No Primary Care Physician Facility:[facility] Start: 12-06-2024 Encounter for gynecological examination (general) (routine) without abnormal findings Ioana Navas [facility] Start: 12-06-[address] Marco Lambert DO Work Phone: [facility] Start: 12-06-2024 End: 12-06-2024 Patient encounter procedure Ioana NUÑEZ -[facility] Work Phone: Start: 12-06-2024 End: 12-06-[address] Marco Lambert DO Work Phone: -[facility] Start: 10-27-2024 End: 10-27-2024 Emergency department patient visit Dr. Di Menjivar MD Work Phone: -Emergency Department Work Phone: Start: 07-25-2024 End: 07-25-2024 Patient encounter procedure Becky NUÑEZ -[facility] Work Phone: Start: 07-25-2024 End: 07-25-2024 ambulatory Becky Danielson Facility:[facility] Start: 06-15-2022 End: 06-15-2022 ambulatory [facility] Work Phone: Start: 06-15-2022 End: 06-15-2022 Patient encounter procedure [facility]-Radiology, [facility] Start: 07-09-2021 End: 07-09-2021 Patient encounter procedure [facility]atory, [place] [employer] Start: 05-21-2021 End: 02-10-2022 Patient encounter procedure [facility]-Ultrasound, [facility] Start: 05-20-2021 End: 05-20-2021 Patient encounter procedure [facility]-Laboratory, Toni Flores Start: 03-12-2021 End: 03-12-2021 Emergency department patient visit PHYSICIAN NO [facility] Start: 03-11-2021 End: 03-12-2021 Emergency department patient visit PHYSICIAN NO [facility] Procedures Date Procedure Procedure Detail Performing Clinician Start: 12-26-2024 Screening mammography Carl Lambert DO Work Phone: Start: 12-26-[address] Panchito Lambert DO Work Phone: Start: 12-18-[address] Marco Lambert DO Work Phone: Start: 10-27-2024 X-ray of chest, PA a nd lateral views Dr. Marco Lambert DO Work Phone: Start: 10-27-[address] Di Menjivar MD Work Phone: Start: 06-15-2022 Plain X-ray of shoulder Start: 05-21-2021 Thyroid Plan of Treatment Date Care Activity Detail Author Start: 12-26-2024 MG Breast - bilatera l Screening [facility] Start: 10-27-2024 X-ray of chest, PA a nd lateral views Chest PA and Lateral [facility] Start: 10-27-2024 XR Chest PA and Lateral [facility] Start: 10-27-2024 [facility] MG Breast - bilatera l Screening [facility] Patient Education ED Back Spasm, No Trauma [facility] Work Phone: [facility] Immunizations Immunization Date Immunization Notes Care Provider Williams gill 01-28-2025 influenza, seasonal, injectable, preservative free Dr. Marco Lambert DO Work Phone: [facility] 02-10-2024 influenza, seasonal, injectable, preservative free Dr. Di Menjivar MD Work Phone: [facility] 11-24-2023 tetanus toxoid, redu lance diphtheria toxoid, and acellular pertussis vaccine, adsorbed Dr. Di Menjivar MD Work Phone: [facility] 01-27-2023 influenza, injectabl e, quadrivalent, preservative free Dr. Di Menjivar MD Work Phone: [facility] 02-08-2022 influenza, injectabl e, quadrivalent, preservative free Dr. Di Menjivar MD Work Phone: [facility] 02-08-2022 influenza, seasonal, injectable [facility] 02-27-2021 [facility] (Moderna) [facility] 01-06-2021 influenza, injectabl e, quadrivalent, preservative free Dr. Di Menjivar MD Work Phone: [facility] 01-06-2021 influenza, seasonal, injectable [facility] 01-06-2021 influenza, seasonal, injectable, preservative free Dr. Marco Acostagetjanny MUNOZ Work Phone: [facility] 05-12-2020 [facility] (Moderna) [facility] 04-14-2020 [facility] 01-08-2020 influenza, injectabl e, quadrivalent, preservative free Dr. Di Menjivar MD Work Phone: [facility] 01-08-2020 influenza, seasonal, injectable [facility] 02-12-2019 influenza, injectabl e, quadrivalent, preservative free Dr. Di Menjivar MD Work Phone: [facility] 02-12-2019 influenza, seasonal, injectable [facility] 01-23-2018 influenza, injectabl e, quadrivalent, preservative free Dr. Di Menjivar MD Work Phone: [facility] 01-23-2018 influenza, seasonal, injectable [facility] 01-05-2017 influenza, injectabl e, quadrivalent, preservative free Dr. Di Menjivar MD Work Phone: [facility] 01-05-2017 influenza, seasonal, injectable [facility] 01-08-2016 influenza, injectabl e, quadrivalent, preservative free Dr. Di Menjivar MD Work Phone: [facility] 01-08-2016 influenza, seasonal, injectable [facility] 01-09-2015 influenza, injectabl e, quadrivalent, preservative free Dr. Di Menjivar MD Work Phone: [facility] 01-09-2015 influenza, seasonal, injectable [facility] 01-09-2014 influenza, injectabl e, quadrivalent, preservative free Dr. Di Menjivar MD Work Phone: [facility] 01-09-2014 influenza, seasonal, injectable [facility] 04-11-2012 tetanus toxoid, redu lance diphtheria toxoid, and acellular pertussis vaccine, adsorbed Dr. Di Menjivar MD Work Phone: [facility] 03-04-2010 hepatitis B vaccine, pediatric or pediatric/adolescent dosage Dr. Di Menjivar MD Work Phone: [facility] 12-22-2009 tetanus toxoid, redu lance diphtheria toxoid, and acellular pertussis vaccine, adsorbed Dr. Marco Lambert DO Work Phone: [facility] 09-24-2009 hepatitis B vaccine, pediatric or pediatric/adolescent dosage Dr. Di Menjivar MD Work Phone: [facility] 08-26-2009 hepatitis B vaccine, pediatric or pediatric/adolescent dosage Dr. Di Menjivar MD Work Phone: [facility] 11-28-1991 measles, mumps and rubella virus vaccine Dr. Di Menjivar MD Work Phone: [facility] 11-29-1984 diphtheria, tetanus toxoids and acellular pertussis vaccine Dr. Marco Lambert DO Work Phone: [facility] 11-29-1984 trivalent poliovirus vaccine, live, oral Dr. Marco Lambert DO Work Phone: [facility] 09-23-1980 diphtheria, tetanus toxoids and acellular pertussis vaccine Dr. Marco Lambert DO Work Phone: [facility] 09-23-1980 trivalent poliovirus vaccine, live, oral Dr. Marco Lambert DO Work Phone: [facility] 06-20-1980 measles, mumps and rubella virus vaccine Dr. Di Menjivar MD Work Phone: [facility] 1979 diphtheria, tetanus toxoids and acellular pertussis vaccine Dr. Marco Lambert DO Work Phone: [facility] 1979 diphtheria, tetanus toxoids and acellular pertussis vaccine Dr. Marco Lambert DO Work Phone: [facility] 1979 trivalent poliovirus vaccine, live, oral Dr. Marco Lambert DO Work Phone: [facility] 1979 diphtheria, tetanus toxoids and acellular pertussis vaccine Dr. Marco Lambert DO Work Phone: [facility] 1979 trivalent poliovirus vaccine, live, oral Dr. Marco Lambert DO Work Phone: [facility] Payers Date Payer Category Payer Self-pay [id number] 2024 Unknown [id number] 2020 Unknown [id number] 1980 Unknown [id number] 2.16. [id number] 1979 Unknown [id number] 2.16. [id number] Unknown ANTHEM [id number] Unknown [id number] 2.16.8 [id number] Unknown [id number] 2.16.8 [id number] Unknown [id number] 2.16.8 [id number] Unknown [id number] 2.16.8 [id number] Unknown [id number] 2.16.8 [id number] Unknown [id number] 2.16.8 [id number] Unknown [id number] 2.16.8 [id number] Unknown [id number] 2.16.8 [id number] Social History Date Type Detail Facility Start: 03-10-2021 Tobacco smoking stat [facility] Unknown if ever smoked [facility] Start: 1980 Sex Assigned At Female [facility] Start: 10-27-2024 End: 12-06-2024 Tobacco smoking status NHIS Ex-smoker (finding) [facility] Sex Female [facility] Mental Status Date Assessment Result Facility 10-27-2024 Cognitive function Level Of Cons ciousness Awake;Alert;Appropriate;Follow s Commands [facility] Work Phone: Clinical Notes 07-09-2021 to 01-30-2025 Note Date & Type Note Facility 01-30-2025 Progress note [facility] 12-27-2024 Radiology Diagnostic study note [facility] Imaging Services [address] [place], [place] [address] Pelvic w/ Transvaginal MR#: [id number] Acct: [id number] Name: ZA MARINA Rep #: [id number] : 1980 F 44 From: Jan Calle MD PCP: Care Physician,No Primary Status: REG CLI Study:Pelvic w/ Transvaginal Date of Exam: 12/26/24 Exam# [id number] Ordering Dr: Ioana Navas PROCEDURE: PELVIC W/ TRANSVAGINAL REASON FOR EXAM: PELVIC PAIN Heavy bleeding. TECHNIQUE: Procedure Code: [id number] Modality: US Procedure: PELVIC W/ TRANSVAGINAL COMPARISON: None FINDINGS: Measurements: Uterus: 11.4 cm x 7 cm x 5.3 cm with a volume of 221.1 mL Endometrial Thickness: 11 mm. There is a 1.3 cm by 1.2 cm x 1.1 cm polyp with astock in the endometrium. Increased vascularity. Right Ovary: 3.3 cm x 3.1 cm x 2 cm with a volume of 10.8 mL. Left Ovary: 3.1 cm x 1.8 cm x 1.9 cm with a volume of 5.4 mL. TRANSABDOMINAL: Uterus: Normal size, myometrial echotexture, and contour. Endometrium: Endometrium measures 11 mm. There is evidence of a 1.3 cm 1.2 cm 1.1 cm polyp on a stalk within the endometrium with increased vascularity. Right ovary: 2.3 cm 1.6 cm 1.7 cm ovarian cyst. Left ovary: Normal size and echotexture. Other: No large pelvic mass identified. Transvaginal sonography was performed to better visualize the endometrium. TRANSVAGINAL: Uterus: Anteverted. Endometrium: Endometrial thickening. 1.3 cm x 1.2 cm 1 cm endometrial polyp with increased vascularity. Right ovary: 2.3 cm 1.6 cm 1.7 cm ovarian cyst. Left ovary: Normal size and echotexture. Other adnexal findings: None. Cul-de-sac: No free intraperitoneal fluid identified. Tenderness: No tenderness US/Pelvic w/ Transvaginal IMPRESSION: Endometrial polyp measuring 1.3 cm 1.2 cm 1 cm. Right ovarian cyst. 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 [facility] 12-18-2024 Progress note [facility] 12-18-2024 Progress note Note Date/Time December 18, 2024 4:10pm [facility] [address], [address] [place], [place] [address] OFFICE VISIT Date of Service: 12/18/24 MR#: [id number] Acct: [id number] Name: ZA MARINA Rep # : [id number] : 1980 Provider: YARON iGl Age/Sex: 44/F Location[place] [facility] Status: Signed Intake Vital Signs 12/06/24 11:11 12/18/24 15:56 Height 5 ft 5 in 5 ft 5 in Weight: 186 lb 9 oz 188 lb BMI 31.0 31.2 BP 128/90 H 142/90 H Blood Pressure Location Lt brachial Pulse 84 Pulse Source Monitor Temp 98.3 F Temp Source Oral Pulse Oximetry (%) 97 Oxygen Delivery Method room air Intake Visit Reasons: CONCERN FOR UTI Chief Complaint: UTI Accompanied by: Self Allergies No Known Allergies Allergy (Verified 12/18/24 15:53) Medications ?Medication ?Instructions ?Recorded ?Confirmed ?Type fexofenadine 180 mg tablet 180 mg PO DAILY PRN allergi es 10/27/24 12/18/24 History (Margret Allergy) [id number] 18 mg-FA 400 tab PO 12/06/24 5 History mcg-calcium 500 mg-vit K 50 mcg tablet (Women's Multivitamin) norethindrone acetate 1 mg-ethinyl 1 tab PO QDAY #63 t abs 12/13/24 12/18/24 Rx estradiol 20 mcg tablet (Loestrin) nitrofurantoin 100 mg PO Q12H 5 days #10 ca ps 12/18/24 12/18/24 Rx monohydrate/macrocrystals 100 mg capsule (Macrobid) Nurse's Note: burning with urination, flank pain, bladder pressure. X 2 days PFSH Medical History (Updated 12/06/24 @ 12:52 by RONNELL SullivanC) Gastrocnemius strain, left Kidney stones Dental cavity Surgical History History of placement of ear tubes Cleft palate Family History Aunt Thyroid cancer Grandmother Ovarian cancer Mother H/O: hysterectomy, Onset Age: 45 Social History adopted: No household members: spouse number of children: 1 current occupational status: employed current occupation: [employer] sexually active: Yes Smoking Status: Former smoker alcohol intake: current alcohol intake frequency: holidays/special occasions only substance use type: does not use caffeine: Yes Type: coffee eating out: rarely or never during the past year weight has: increased > 10 lbs what type of physical activity do you participate in: none tika/alevism: Temple seatbelt use: always do you feel safe at home: Yes additional social history: - 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 No complaints of fever, chills, sweats, lightheadedness/dizziness, nausea/vomiting, chest pain/shortness of breath/dyspnea on exertion, or midback pain. No changes in color/ character of urine or stool. No [id number] products taken to assist. No other associated symptoms and no alleviating/aggravating factors. ROS Const Constitutional: No other (As above) Exam Const General: cooperative, healthy appearing and no acute distress Orientation: alert, awake Chest Chest palpation & inspection: normal inspection of the chest Resp Effort & Inspection: normal respiratory effort and able to speak in complete sentences Cardio Rate: regular rate Pulses: radial pulses present GI Inspection: normal to inspection Palpation: soft and tender suprapubic (Patient describes upon self-palpation) General: No CVA tenderness Skin General: no rashes or lesions noted Neuro General: patient alert, patient awake Cognition: normal cognition Speech: speech normal Psych Appearance: grossly normal Mental Status: mental status grossly normal Mood: congruent mood Affect: normal affect Speech and Movement: speech and movement normal Attitude: cooperative Diagnoses Urinary tract infection N39.0 Assessment and Plan Assessment and Plan (1) Urinary tract infection: Status: Acute Plan: See POC results; urine sent to lab for C/S. Macrobid as prescribed today. Supportive measures as instructed today. Follow-up with PCP in 3 to 5 days should symptoms not improve, sooner should symptoms only worsen or any other concerns develop. Patient states acknowledging understanding all the above. Results POC Urinalysis Dip (Clinic) Office Urine Color YELLOW Last Edit by Ayleen Sorto MA on 12/18/24 16:06 Office Urine Clarity Clear Last Edit by Ayleen Sorto MA on 12/18/24 16:06 Office Urine Glucose Negative Last Edit by Ayleen Sorto MA on 12/18/24 16: 06 Office Urine Ketones Negative Last Edit by Ayleen Sorto MA on 12/18/24 16: 06 Off Ur Spec Cresbard 1.005 Last Edit by Ayleen Sorto MA on 12/18/24 16:06 Office Urine pH 7.0 Last Edit by Ayleen Sorto MA on 12/18/24 16:06 Office Urine Bilirubin Negative Last Edit by Ayleen Sorto MA on 12/18/24 16:06 Office Urine Urobilinogen Negative Last Edit by Ayleen Sorto MA on 5 16:06 Office Urine Blood Moderate Last Edit by Ayleen Sorto MA on 12/18/24 16:06 Office Urine Blood Hemolyzed NA Last Edit by Ayleen Sorto MA on 12/18/24 16:06 Office Urine Protein Negative Last Edit by Ayleen oSrto MA on 12/18/24 16: 06 Office Urine Nitrate Negative Last Edit by Ayleen Sorto MA on 12/18/24 16: 06 Off Ur Leukocytes Positive Last Edit by Ayleen Sorto MA on 12/18/24 16:06 Coding Level of Care Code Off vis,est,level 3 Assessment and Plan Assessment and Plan Orders: Orders POC Urinalysis Dip (Clinic) Today R30.0 - Dysuria Culture, Urine Today R30.0 - Dysuria Medications: New nitrofurantoin monohyd/m-cryst 100 mg (Macrobid) must administer with a meal/food 100 mg PO Q12H 5 days 10 caps 0RF 12/18/24 1610 <Electronically signed by David MARRUFO> Date _ David Oliva Signature: Date (if applicable) CC: ~ [facility] Work Phone: 1(235) 209-960508-28-2025 Evaluation note* Diagnosis Onset Date Resolution Status Admit Date Menorrhagia acute December 06, 2024 10:50am Pelvic pain acute December 06, 2024 10:50am Women's annual routine gynecological examination acute December 06, 2024 10:50am [facility] Work Phone: 1(252) 690-350808-28-2025 Evaluation note* Diagnosis Onset Date Resolution Status Admit Date Menorrhagia acute December 06, 2024 10:50am Pelvic pain acute December 06, 2024 10:50am Women's annual routine gynecological examination acute December 06, 2024 10:50am Abnormal uterine bleeding du e to endometrial polyp acute January 8:06am Enlarged uterus acute January 102024 8:06am Menorrhagia acute January 30, 2025 8:06am [facility] Work Phone: 1(149) 676-387707-19-2025 Discharge summary [facility] Medical Records Department [address] [place] [id number] Emergency Department Summary 10/27/24 MR#: [id number] Acct: [id number] Name: ZA MARINA Rep #:[id number] : 1980 44 From: Marco mock DO PCP: Dr. Melodie Neri MD Status:REG ER Location: ED HPI History of Present Illness Chief Complaint: Chest Pain Narrative Narrative: Chief complaint and HPI: Left shoulder blade pain. 44-year-old female with no significant past medical history presents for evaluation of left shoulder blade pain. Patient states that she woke up with pain in this area yesterday morning in which she took ibuprofen and pain resolved. States it reoccurred this morning when she woke up. States its mostly located in the left shoulder blade/scapular region and radiates into her left shoulder. Triage note states that it radiates into her chest which she denies this to me. She denies any chest pain. She denies any numbness or tingling. Denies any trauma or injury. She denies any fever, chills, shortness of breath, abdominal pain, nausea, vomiting,weakness. Took 2 ibuprofen earlier this morning. Review of systems: See HPI Medications: As listed on the chart Allergies: As listed on the chart PFSH: Per chart Vital signs: As listed on the chart. Reviewed. Physical exam: Gen: A&O x3, NAD Head: Normocephalic, atraumatic Eyes: No sclera icterus, conjunctiva clear ENT: Moist mucous membranes Neck: Trachea midline, No JVD, full range of motion, nontender CV: RRR, no murmurs, no peripheral edema Resp: Lungs CTA BL, no w/r/c GI: Abd soft, non-distended, non-tender, no r/r/g Musc: Full ROM, no deformity, no midline spinal tenderness, no bony step-off, patient has tenderness to palpation of the paraspinal musculature of the left thoracic spine near the scapula-muscles aretense-similar pain with palpation, radial pulse +2 bilaterally Skin: Warm, dry Neuro: Alert, oriented, grossly intact, sensation intact Psych: Cooperative, appropriate mood and affect [facility] Medical History (Updated 10/27/24 @ 07:[address] Marco Lambert, DO) Kidney stones Dental cavity Home Medications ?Medication ?Instructions ?Recorded ?Last Taken ?Type cyclobenzaprine 5 mg tablet 5 mg PO TID PRN muscle spa sm 3 10/27/24 Unknown Rx days #9 tabs fexofenadine 180 mg tablet 180 mg PO DAILY PRN allergi es 10/27/24 Unknown History (Margret Allergy) Allergy/AdvReac Type Severity Reaction Status Date / Time No Known Allergies Allergy Verified 10/27/24 06:26 Surgical History History of placement of ear tubes Cleft palate Social History Smoking Status: Former smoker alcohol intake: never EXAM Physical Exam Const Vital Signs: 10/27/24 06:22 10/27/24 07:13 Temperature 98.0 F Temperature Source Oral Pulse Rate 91 Respiratory Rate 16 Respiratory Pattern Normal Blood Pressure 153/94 H Blood Pressure Mean 113 Pulse Ox 100 Oxygen Delivery Method Room Air MDM MDM MDM Narrative Medical decision making narrative: 44-year-old female with no significant past medical history presents for evaluation of left shoulder blade pain. Patient states that she woke up with pain in this area yesterday morning in which she took ibuprofen and pain resolved. States it reoccurred this morning when she woke up. States its mostly located in the left shoulder blade/scapular region and radiates into her leftshoulder. Triage note states that it radiates into her chest which she denies this to me. On physical exam, patient hastenderness to palpation of the paraspinal musculature in this region. States with palpation it feels similar to the pain that she is experiencing. I suspect her symptoms are secondary to myofascial spasm, low suspicion for ACS. Toradol and cyclobenzaprine ordered for symptoms. Basic labs ordered with chest x-ray and EKG. EKG and chest x-ray reviewed see below. CBC unremarkable. BMP and troponin pending at this time. Patient is well-knownto me. Provider, Dr. Gaffney. If laboratory workup is unremarkable, plan will be to discharge home and follow-up with primary care physician. EKG: Interpreted by me/EM physician: EKG shows normal sinus rhythm without any acute ischemic changes. Heart rate 95 Diagnostic: Interpreted by me/EM physician: Chest x-ray without cardiomegaly, pneumothorax,pneumonia, effusion. Impression: 1. Left thoracic back Lab Data Labs: Laboratory Results - last 24 hr 10/27/24 06:36 WBC 9.6 RBC 4.84 Hgb 13.9 Hct 40.9 MCV 84.5 MCH 28.7 MCHC 34.0 RDW Std Deviation 41.8 RDW Coeff of Kady 13.4 Plt Count 308 MPV 9.7 Immature Gran % (Auto) 0.500 Neut % (Auto) 62.9 Lymph % (Auto) 29.0 Hanson % (Auto) 5.0 Eos % (Auto) 2.1 Baso % (Auto) 0.5 Absolute Neuts (auto) 6.1 Absolute Lymphs (auto) 2.80 Nucleated RBC % 0 Discharge Plan Triage Chief Complaint: Chest Pain ED Provider: Marco Lambert Dx/Rx/DC Orders Clinical Impression: Left-sided thoracic back pain Instructions: ED Back Spasm, No Trauma Prescriptions: New cyclobenzaprine 5 mg tablet 5 mg PO TID PRN (Reason: muscle spasm) 3 Days Qty: 9 0RF No Action fexofenadine [Margret Allergy] 180 mg tablet 180 mg PO DAILY PRN (Reason: allergies) Primary Care Provider: Melodie Neri Referrals: Di Menjivar MD [Med Staff - Icer Machine Operator] - Activity Restrictions/Additional Instructions: Follow-up with your primary care physician. Return back to the ED symptoms change or worsen. Tylenol and Motrin as needed for pain. You received Toradol here in the emergency department, no ibuprofenfor 8 hours. Received a muscle relaxer here in the emergency department department, no muscle relaxer for 8 hours. Muscle relaxer as needed for spasm. Do not drive or operate heavy machinery while taking these. They can increase fatigue, confusion, falls. Print Language: Irish Disposition Disposition: Home, Self Care What to do if you have Problems For any increased pain, shortness of breath, bleeding, nausea or vomiting, chestpain, or any unexpected problems, contact your Primary Care Provider. Call [facility] ([phone]) or report tothe closest Emergency Room. Call 911 if necessary. 10/27/24 0730 Cosigner Signature (if applicable): CC: Dr. Melodie Neri MD ~ Signed ADDENDUM by Dr. Boubacar Gaffney MD on 10/27/24 at 0750 Patient turned over to al. Her chest x-ray, CBC, chemistry and troponin were unremarkable. On repeat exam at 7:40 AM. Patient is doing well. Heart lung abdominal exam benign. No reproducible pain currently on her back exam she describes the pain as sharp medial to her left scapula. Her back is unremarkable in appearance. Patient's labs, chest x-ray and EKG were all unremarkable. She be discharged tominot afb. Motrin Tylenolfor pain. 10/27/24 0750 Cosigner Signature (if applicable): cc: Dr. Melodie Neri MD ~* Signed [facility]04-16-2025 Evaluation note* Diagnosis Onset Date Resolution Status Admit Date Gastrocnemius strain, left acute July 25, 2024 9:08am [facility] Work Phone: 1(443) 390-590303-31-2022 NotePap Smear Specimen AdequacyMarch 2021 2:30pmCommentSatisfactory for evaluation. Endocervical and/or squamous metaplasticcells (endocervical component)are present.[facility][id number] Work Phone: Comment on above:Satisfactory for evaluation. Endocervical and/or squamous metaplasticcells (endocervical component)are present.Discharge summary Author Marco Lambert [facility] Note Date/Time October 27, 2024 7:50 am [facility] Medical Records Department [address] [place] [address] Emergency Department Summary 10/27/24 MR#: [id number] Acct: [id number] Name: ZA MARINA Rep #:[id number] : 1980 44 From: Marco mock DO PCP: Dr. Melodie Neri MD Status:REG ER Location: ED HPI History of Present Illness Chief Complaint: Chest Pain Narrative Narrative: Chief complaint and HPI: Left shoulder blade pain. 44-year-old female with no significant past medical history presents for evaluation of left shoulder blade pain. Patient states that she woke up with pain in this area yesterday morning in which she took ibuprofen and pain resolved. States it reoccurred this morning when she woke up. States its mostly located in the left shoulder blade/scapular region and radiates into her left shoulder. Triage note states that it radiates into her chest which she denies this to me. She denies any chest pain. She denies any numbness or tingling. Denies any trauma or injury. She denies any fever, chills, shortness of breath, abdominal pain, nausea, vomiting, weakness. Took 2 ibuprofen earlier this morning. Review of systems: See HPI Medications: As listed on the chart Allergies: As listed on the chart PFSH: Per chart Vital signs: As listed on the chart. Reviewed. Physical exam: Gen: A&O x3, NAD Head: Normocephalic, atraumatic Eyes: No sclera icterus, conjunctiva clear ENT: Moist mucous membranes Neck: Trachea midline, No JVD, full range of motion, nontender CV: RRR, no murmurs, no peripheral edema Resp: Lungs CTA BL, no w/r/c GI: Abd soft, non-distended, non-tender, no r/r/g Musc: Full ROM, no deformity, no midline spinal tenderness, no bony step-off, patient has tenderness to palpation of the paraspinal musculature of the left thoracic spine near the scapula-muscles are tense-similar pain with palpation, radial pulse +2 bilaterally Skin: Warm, dry Neuro: Alert, oriented, grossly intact, sensation intact Psych: Cooperative, appropriate mood and affect [facility] Medical History (Updated 10/27/24 @ 07:[address] Marco Lambert, DO) Kidney stones Dental cavity Home Medications ?Medication ?Instructions ?Recorded ?Last Taken ?Type cyclobenzaprine 5 mg tablet 5 mg PO TID PRN muscle spa sm 3 10/27/24 Unknown Rx days #9 tabs fexofenadine 180 mg tablet 180 mg PO DAILY PRN allergi es 10/27/24 Unknown History (Margret Allergy) Allergy/AdvReac Type Severity Reaction Status Date / Time No Known Allergies Allergy Verified 10/27/24 06:26 Surgical History History of placement of ear tubes Cleft palate Social History Smoking Status: Former smoker alcohol intake: never EXAM Physical Exam Const Vital Signs: 10/27/24 06:22 10/27/24 07:13 Temperature 98.0 F Temperature Source Oral Pulse Rate 91 Respiratory Rate 16 Respiratory Pattern Normal Blood Pressure 153/94 H Blood Pressure Mean 113 Pulse Ox 100 Oxygen Delivery Method Room Air MDM MDM MDM Narrative Medical decision making narrative: 44-year-old female with no significant past medical history presents for evaluation of left shoulder blade pain. Patient states that she woke up with pain in this area yesterday morning in which she took ibuprofen and pain resolved. States it reoccurred this morning when she woke up. States its mostly located in the left shoulder blade/scapular region and radiates into her leftshoulder. Triage note states that it radiates into her chest which she denies this to me. On physical exam, patient has tenderness to palpation of the paraspinal musculature in this region. States with palpation it feels similar to the pain that she is experiencing. I suspect her symptoms are secondary to myofascial spasm, low suspicion for ACS. Toradol and cyclobenzaprine ordered for symptoms. Basic labs ordered with chest x-ray and EKG. EKG and chest x-ray reviewed see below. CBC unremarkable. BMP and troponin pending at this time. Patient is well-knownto me. Provider, Dr. Gaffney. If laboratory workup is unremarkable, plan will be to discharge home and follow-up with primary care physician. EKG: Interpreted by me/EM physician: EKG shows normal sinus rhythm without any acute ischemic changes. Heart rate 95 Diagnostic: Interpreted by me/EM physician: Chest x-ray without cardiomegaly, pneumothorax,pneumonia, effusion. Impression: 1. Left thoracic back Lab Data Labs: Laboratory Results - last 24 hr 10/27/24 06:36 WBC 9.6 RBC 4.84 Hgb 13.9 Hct 40.9 MCV 84.5 MCH 28.7 MCHC 34.0 RDW Std Deviation 41.8 RDW Coeff of Kady 13.4 Plt Count 308 MPV 9.7 Immature Gran % (Auto) 0.500 Neut % (Auto) 62.9 Lymph % (Auto) 29.0 Hanson % (Auto) 5.0 Eos % (Auto) 2.1 Baso % (Auto) 0.5 Absolute Neuts (auto) 6.1 Absolute Lymphs (auto) 2.80 Nucleated RBC % 0 Discharge Plan Triage Chief Complaint: Chest Pain ED Provider: Marco Lambert Dx/Rx/DC Orders Clinical Impression: Left-sided thoracic back pain Instructions: ED Back Spasm, No Trauma Prescriptions: New cyclobenzaprine 5 mg tablet 5 mg PO TID PRN (Reason: muscle spasm) 3 Days Qty: 9 0RF No Action fexofenadine [Margret Allergy] 180 mg tablet 180 mg PO DAILY PRN (Reason: allergies) Primary Care Provider: Melodie Neri Referrals: Di Menjivar MD [Med Staff - Icer Machine Operator] - Activity Restrictions/Additional Instructions: Follow-up with your primary care physician. Return back to the ED symptoms change or worsen. Tylenol and Motrin as needed for pain. You received Toradol here in the emergency department, no ibuprofen for 8 hours. Received a muscle relaxer here in the emergency department department, no muscle relaxer for 8 hours. Muscle relaxer as needed for spasm. Do not drive or operate heavy machinery while taking these. They can increase fatigue, confusion, falls. Print Language: Irish Disposition Disposition: Home, Self Care What to do if you have Problems For any increased pain, shortness of breath, bleeding, nausea or vomiting, chestpain, or any unexpected problems, contact your Primary Care Provider. Call [facility] ([phone]) or report to the closest Emergency Room. Call 911 if necessary. 10/27/24 0730 <Electronically signed by Marco Lambert DO> Cosigner Signature (if applicable): CC: Dr. Melodie Neri MD ~ Signed ADDENDUM by Dr. Boubacar Gaffney MD on 10/27/24 at 0750 Patient turned over to al. Her chest x-ray, CBC, chemistry and troponin were unremarkable. On repeat exam at 7:40 AM. Patient is doing well. Heart lung abdominal exam benign. No reproducible pain currently on her back exam she describes the pain as sharp medial to her left scapula. Her back is unremarkable in appearance. Patient's labs, chest x-ray and EKG were all unremarkable. She be discharged tominot afb. Motrin Tylenol for pain. 10/27/24 0750<Electronically signed by Boubacar Gaffney MD> Cosigner Signature (if applicable): cc: Dr. Melodie Neri MD ~* Signed [facility] Work Phone: Evaluation noteNo assessment information available [facility] Work Phone: Hospital Discharge instructionsAdditional Instructions Follow-up with your primary care physician. Return back to the ED symptoms change or worsen. Tylenol and Motrin as needed for pain. You received Toradol here in the emergency department, no ibuprofen for 8 hours. Received a muscle relaxer here in the emergency department department, no muscle relaxer for 8 hours. Muscle relaxer as needed for spasm. Do not drive or operate heavy machinery while taking these. They can increase fatigue, confusion, falls. [facility] Work Phone: Progress note Author Azalia Russell [facility] Note Date/Time January 30, 2025 1 0:00am [facility] [address], [address] [place] [address] OFFICE VISIT Date of Service: 01/30/25 MR#: [id number] Acct: [id number] Name: ZA MARINA Rep # : [id number] : 1980 Provider: Dr. Lorrie Landeros, Age/Sex: 44/F Location: [facility] Status: Signed Intake Vital Signs 12/18/24 15:56 01/30/25 08:07 01/30/25 08:09 Height 5 ft 5 in 5 ft 5 in 5 ft 5 in Weight: 188 lb 186 lb 2 oz BMI 31.2 30.9 BP 142/90 H 146/91 H Blood Pressure Location Lt brachial Pulse 84 Pulse Source Monitor Temp 98.3 F Pulse Oximetry (%) 97 Oxygen Delivery Method room air Intake Visit Reasons: surgical consult-polyp Sld Teacher Required: No Is patient in pain?: No Allergies No Known Allergies Allergy (Verified 01/30/25 08:07) Medications ?Medication ?Instructions ?Recorded ?Confirmed ?Type fexofenadine 180 mg tablet 180 mg PO DAILY PRN allergi es 10/27/24 01/30/25 History (Margret Allergy) ayosehif-shq-cljo 18 mg-FA 400 tab PO 12/06/24 5 History mcg-calcium 500 mg-vit K 50 mcg tablet (Women's Multivitamin) lorazepam 0.5 mg tablet (Ativan) 0.5 mg PO ONCE #1 TAB 01/30/25 01/30/25 Rx medroxyprogesterone 5 mg tablet 5 mg PO QDAY #60 tabs 01/30/25 01/30/25 Rx Post menopausal: No Patient : No : No [facility] Medical History Gastrocnemius strain, left Kidney stones Dental cavity Surgical History History of placement of ear tubes Cleft palate Family History Aunt Thyroid cancer Grandmother Ovarian cancer Mother H/O: hysterectomy, Onset Age: 45 Social History adopted: No household members: spouse number of children: 1 current occupational status: employed current occupation: [employer] sexually active: Yes Smoking Status: Former smoker alcohol intake: current alcohol intake frequency: holidays/special occasions only substance use type: does not use caffeine: Yes Type: coffee eating out: rarely or never during the past year weight has: increased > 10 lbs what type of physical activity do you participate in: none tika/alevism: Temple seatbelt use: always do you feel safe at home: Yes additional social history: - [employer] in [employer] HPI surgical consult-polyp Details: The patient is a 44-year-old female with a history of heavy menstrual bleeding presenting for follow-up after an ultrasound revealed an endometrial polyp and an enlarged uterus. Menstrual Irregularities - Reports heavy menstrual bleeding, sometimes soaking through overnight pads in about 2 hours, causing her to be afraid to move. - Bleeding is not consistently heavy every time, but she has experienced random episodes of heavy bleeding lasting from a week to a couple of weeks. - Since her last appointment, she has had only one heavy bleeding episode. - Bleeding has led to embarrassing accidents in public, causing her to avoid going out during heavy bleeding episodes. - Describes her periods as a little heavier than they used to be. - Initially thought her symptoms were due to perimenopause. Pelvic Pressure - Reports feeling full and experiencing dull, crampy pressure when bending forward, but denies sharp pain. - Describes the sensation as uncomfortable and feels like something's wrong. - Feels pressure when her bladder is full, stating, Anytime I have to go pee real bad, it hurts. Reproductive History - - Delivered one child via vaginal delivery, who is now 27 years old. - Denies desire for future fertility. Past Diagnostic Results: - Ultrasound: Revealed an endometrial polyp and an enlarged uterus measuring almost 12 cm. FINDINGS: Measurements: Uterus: 11.4 cm x 7 cm x 5.3 cm with a volume of 221.1 mL Endometrial Thickness: 11 mm. There is a 1.3 cm by 1.2 cm x 1.1 cm polyp with astock in the endometrium. Increased vascularity. Right Ovary: 3.3 cm x 3.1 cm x 2 cm with a volume of 10.8 mL. Left Ovary: 3.1 cm x 1.8 cm x 1.9 cm with a volume of 5.4 mL. TRANSABDOMINAL: Uterus: Normal size, myometrial echotexture, and contour. Endometrium: Endometrium measures 11 mm. There is evidence of a 1.3 cm 1.2 cm 1.1 cm polyp on a stalk within the endometrium with increased vascularity. Right ovary: 2.3 cm 1.6 cm 1.7 cm ovarian cyst. Left ovary: Normal size and echotexture. Other: No large pelvic mass identified. Transvaginal sonography was performed to better visualize the endometrium. TRANSVAGINAL: Uterus: Anteverted. Endometrium: Endometrial thickening. 1.3 cm x 1.2 cm 1 cm endometrial polyp with increased vascularity. Right ovary: 2.3 cm 1.6 cm 1.7 cm ovarian cyst. Left ovary: Normal size and echotexture. Other adnexal findings: None. Cul-de-sac: No free intraperitoneal fluid identified. Tenderness: No tenderness US/Pelvic w/ Transvaginal IMPRESSION: Endometrial polyp measuring 1.3 cm 1.2 cm 1 cm. Right ovarian cyst History 1 Elective abortions Hx Para 1 Spontaneous abortions Hx # Term Pregnancies Ectopic pregnancies Hx # Pregnancies Multiple births # of living children 1 Past Pregnancies Del. Date Name GA/Weeks Outcome Route Bth Weight Gen Labor Lgth Anesthesia Del Locatn Provider FOB 02/12/98 [facility] live - full term 6lbs 11oz Female none [facility] ROS Const ROS Unobtainable: All systems reviewed & are unremarkable except as noted in H Resp Resp: Reports system reviewed and no additional complaints, except as documented; Denies cough GI GI: Reports as per HPI Psych Psych: Reports system reviewed and no additional complaints, except as documented Exam Const General: cooperative, healthy appearing, comfortable and no acute distress Resp Effort & Inspection: normal respiratory effort Skin General: no rashes or lesions noted Psych Appearance: grossly normal Speech and Movement: speech and movement normal Coding Level of Care Code Off vis,est,level 4 Diagnoses Menorrhagia N92.0 Enlarged uterus N85.2 Abnormal uterine bleeding due to endometrial polyp N93.9; N84.0 Assessment and Plan Assessment and Plan (1) Menorrhagia: Status: Acute (2) Enlarged uterus: Status: Acute (3) Abnormal uterine bleeding due to endometrial polyp: Status: Acute Medications: New lorazepam (Ativan) take this pill 30 minutes before procedure 0.5 mg PO ONCE 1 TAB 0RF medroxyprogesterone 5 mg PO QDAY 60 tabs 2RF Plan # Excessive and frequent menstruation with irregular cycle (N92.1) # Endometrial polyp (N84.0) # Enlarged uterus (N85.2) - Reviewed MINING MANAGER notes from 12/07/2023 regarding heavy menstrual bleeding. - Uterine ultrasound revealed an enlarged uterus (12 cm) and a centrally locatedendometrial polyp. - Discussed that the polyp is likely contributing to heavy menstrual bleeding and may harbor malignant cells. - Discussed two management options: hysteroscopic polypectomy with D&C versus laparoscopic hysterectomy. - Explained that hysteroscopic polypectomy is a minimally invasive outpatient procedure with a short recovery time (1-2 days), but may not fully resolve symptoms due to uterine enlargement; if symptoms persist, hysterectomy remains an option. - Explained that laparoscopic hysterectomy is also an outpatient procedure with a longer recovery (6 weeks), but would definitively address symptoms; ovaries would be preserved to avoid surgical menopause. - Discussed risks and benefits of both procedures, including potential for persistent symptoms with polypectomy and longer recovery with hysterectomy. - Patient leaning toward hysterectomy for definitive management. - Order endometrial biopsy to rule out malignancy prior to surgical intervention. - Order thyroid function tests, blood type, and hemoglobin as required by insurance. - Prescribed lorazepam 1 mg PO once, to be taken 30 minutes prior to biopsy, andadvised taking 600-800 mg ibuprofen with food prior to procedure. -start progesterone now to help minimize future menses flow - Follow-up after vacation in the third week of February for endometrial biopsy. Patient Instructions: We discussed your heavy periods and uterine polyp: - Your ultrasound showed an enlarged uterus (approximately 12 cm, compared to a normal size of 7 cm) and a polyp in the middle of your endometrium. This polyp is likely contributing to your heavy periods and discomfort. - I explained that the polyp has its own blood vessels, which can cause additional bleeding, especially during physical activity or uterine contractions. Removing the polyp is important, as it can sometimes harbor cancerous cells. - We discussed two treatment options: 1. Hysteroscopy with D&C: A minimally invasive procedure to remove the polyp and scrape the uterine lining. This would involve a short recovery time (1-2 days) and allow us to assess how your periods respond. However, this may not fully address your symptoms due to the size of your uterus. 2. Hysterectomy: A laparoscopic procedure to remove your uterus, which would address both the polyp and the enlarged uterus. Recovery typically takes 6weeks, with light activity allowed after 2 weeks. Your ovaries would not be removed, so you would not enter menopause as a result of this surgery. - You expressed a preference for proceeding with a hysterectomy to avoid ongoingissues and the need for additional procedures. I explained the process, recoveryexpectations, and potential benefits. We discussed the next steps to prepare for surgery: - A biopsy of your uterine lining is required to rule out cancerous cells. This is a routine step and also required by your insurance. - We will also check your thyroid function and perform basic blood work, including blood type and hemoglobin levels. - You decided to schedule the biopsy after your vacation in mid-February. I willprescribe a low-dose Ativan to help you relax before the procedure. Please take it 30 minutes before your appointment, along with 3-4 Motrin and some food. Medications: - I [facility] Take one tablet 30 minutes before your biopsy appointment. Do not drive after taking this medication. - Progesterone 5 mg now. if menses become excessive, take 2 twice a day Follow-Up: - Please schedule your biopsy for the third week of February or later, after your vacation. - After the biopsy, we will review the results and finalize the surgical plan. Let us know if you have any questions or concerns before your next visit. 01/30/25 0903 <Electronically signed by Azalia Goldman DO> Date _ Azalia CalderónPosada [facility] Signature: Date (if applicable) CC: ~ [facility] Work Phone: Reason for referral (narrative)No reason for referral information availableWCommunity [facility] Work Phone: Summary Purpose Family History Relationship Condition Age at Onset Recorded Date/T aba aunt Malignant neoplasm of thyroid gland Unkno wn grandmother Malignant neoplasm of ovary Unknown mother History of hysterectomy 44 Advance Directives Advance Directive Response Recorded Date/ Time Do you have a Healthcare Power of Thinner Sprayer? No October 27, 2024 6:25am Advance Directive Response Recorded Date/ Time Do you have a Healthcare Power of Thinner Sprayer? 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, 2024 10:50am EORDERS December 11, 2024 1:38pm CONCERN FOR UTI December 18, 2024 3:52pm Reason for Visit Admit Date Menorrhagia December 06, 2024 10 :50am Pelvic pain December 06, 2024 10 :50am Women's annual routine gynecological exa mination December 06, 2024 10:50am Chief Complaint Admit Date chest pain October 27, 2024 6:22 am 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, 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 10:50am EORDERS December 11, 2024 1:38pm CONCERN FOR UTI December 18, 2024 3:52pm screening for breast cancer,PELVIC PAIN December 26, 2024 8:26am Chief Complaint Admit Date chest pain October 27, 2024 6:22 am 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, 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 10:50am EORDERS December 11, 2024 1:38pm CONCERN FOR UTI December 18, 2024 3:52pm screening for breast cancer,PELVIC PAIN December 26, 2024 8:26am surgical consult-polyp January 30 8:06am Reason for Visit Admit Date Menorrhagia December 06, 2024 10 :50am Pelvic pain December 06, 2024 10 :50am Women's annual routine gynecological exa mination December 06, 2024 10:50am Abnormal uterine bleeding due to endomet rial polyp January 30, 2025 8:06am Enlarged uterus January 30, 2025 8 :06am Menorrhagia January 30, 2025 8 :06am Additional Source Comments INFORMATION SOURCE (unrecogn ized section and content) DATE CREATED AUTHOR 04/03/2021 [facility] DATE CREATED AUTHOR AUTHOR'S ORGANIZ ATION 01/31/2025 [facility] Goals (unrecognized section and content) Goals may be documented in a n alternate sectionGoals may be documented in an alternate sectionGoals may be documented in an alternate sectionGoals may be documented in an alternate sectionGoals may be documented in an alternate sectionGoals may be documented in an alternate sectionGoals may be documented in an alternate sectionGoals may be documented in an alternate sectionGoals may be documented in an alternate section Care Teams (unrecognized sec tion and content) Team Status: Active Member Role Status Dates Dr. Lee Singh MD Family Provider Active Dr. Di Menjivar MD Primary Care Provider Active Team Status: Inactive Member Role Status Dates Dr. Di Menjivar MD Primary Care Provider Active Jessica MARRUFO, PA Attending Provider Active Team Status: Active Member Role/Relationship Status Dates Dr. Melodie Neri MD Primary Care Provider Active Team Status: Inactive Member Role/Relationship Status Dates Dr. Di Menjivar MD Primary Care Provider Active Start: July 25, 2024 End: July 25, 2024 Dr. Di Menjivar MD Referring Provider Active Start: July 25, 2024 End: July 25, 2024 JOAQUIN Quezada Attending Provider Active Start: July 25, 2024 End: July 25, 2024 Team Status: Inactive Member Role/Relationship Status Dates Dr. Marco Lambert DO Emergency Provider Activ e Start: October 27, 2024 End: October 27, 2024 Dr. Melodie Neri MD Primary Care Provider Active Start: October 27, 2024 End: October 27, 2024 Team Status: Inactive Member Role/Relationship Status Dates Dr. Marco Lambert DO Attending Provider Activ e Start: October 27, 2024 End: October 27, 2024 Dr. Marco Lambert DO Emergency Provider Activ e Start: October 27, 2024 End: October 27, 2024 Dr. Melodie Neri MD Primary Care Provider Active Start: October 27, 2024 End: October 27, 2024 Team Status: Inactive Member Role/Relationship Status Dates Dr. Melodie Neri MD Primary Care Provider Active Start: December 06, 2024 End: December 06, 2024 Dr. Melodie Neri MD Referring Provider Active Start: December 06, 2024 End: December 06, 2024 JOAQUIN Sullivan Attending Provider Active Start: December 06, 2024 End: December 06, 2024 Team Status: Active Member Role/Relationship Status Dates No Primary Care Physician Primary Care Provider Active Team Status: Active Member Role/Relationship Status Dates No Primary Care Physician Primary Care Provider Active Start: December 11, 2024 JOAQUIN Sullivan Attending Provider Active Start: December 11, 2024 JOAQUIN Sullivan Referring Provider Active Start: December 11, 2024 Team Status: Inactive Member Role/Relationship Status Dates No Primary Care Physician Primary Care Provider Active Start: December 18, 2024 End: December 18, 2024 No Primary Care Physician Referring Provider Active Start: December 18, 2024 End: December 18, 2024 David MARRUFO, PA Attending Provider Active Start: December 18, 2024 End: December 18, 2024 Team Status: Active Member Role/Relationship Status Dates No Primary Care Physician Primary care physician Activ e Team Status: Inactive Member Role/Relationship Status Dates Dr. Marco Lambert DO Attending physician Active Start: October 27 End: October 27, 2024 Dr. Mraco Lambert DO Emergency Department Physician Active Start: October 27, 2024 End: October 27, 2024 Dr. Melodie Neri MD Primary care physician Active Start: October 27, 2024 End: October 27, 2024 Team Status: Inactive Member Role/Relationship Status Dates Dr. Melodie Neri MD Primary care physician Active Start: December 06, 2024 End: December 06, 2024 Dr. Melodie Neri MD Referring Provider Active Start: December 06, 2024 End: December 06, 2024 JOAQUIN Sullivan Attending physician Active Start: December 06, 2024 End: December 06, 2024 Team Status: Inactive Member Role/Relationship Status Dates No Primary Care Physician Primary care physician Activ e Start: December 11, 2024 End: December 11, 2024 JOAQUIN Sullivan Attending physician Active Start: December 11, 2024 End: December 11, 2024 JOAQUIN Sullivan Referring Provider Active Start: December 11, 2024 End: December 11, 2024 Team Status: Inactive Member Role/Relationship Status Dates No Primary Care Physician Primary care physician Activ e Start: December 18, 2024 End: December 18, 2024 No Primary Care Physician Referring Provider Active Start: December 18, 2024 End: December 18, 2024 YARON Moe Attending physician Active Start: December 18, 2024 End: December 18, 2024 Team Status: Inactive Member Role/Relationship Status Dates No Primary Care Physician Primary care physician Activ e Start: December 18, 2024 End: December 18, 2024 YARON Moe Attending physician Active Start: December 18, 2024 End: December 18, 2024 Team Status: Active Member Role/Relationship Status Dates JOAQUIN Sullivan Attending physician Active Start: December 26, 2024 JOAQUIN Sullivan Referring Provider Active Start: December 26, 2024 No Primary Care Physician Primary care physician Activ e Start: December 26, 2024 Team Status: Inactive Member Role/Relationship Status Dates JOAQUIN Sullivan Attending physician Active Start: December 26, 2024 End: December 26, 2024 JOAQUIN Sullivan Referring Provider Active Start: December 26, 2024 End: December 26, 2024 No Primary Care Physician Primary care physician Activ e Start: December 26, 2024 End: December 26, 2024 Team Status: Inactive Member Role/Relationship Status Dates No Primary Care Physician Primary care physician Activ e Start: January 30, 2025 End: January 30, 2025 No Primary Care Physician Referring Provider Active Start: January 30, 2025 End: January 30, 2025 Dr. Azalia Landeros , DO Attending physician Acti ve Start: January 30, 2025 End: January 30, 2025 FOR RECORDS PERTAINING TO PATIENTS WHO ARE [...] BE BASED ON THE PRIMARY CLINICAL RECORDS. [employer] provides no warranty or guarantee of the accuracy or completeness of information in this document.
== END | disposition home or self-care (01) ==
LOC: LABSPEC 10:52
PROVIDERS: Visit Provider Obstetrics & Gynecology
DX: N93.9 Abnormal uterine and vaginal bleeding, unspecified (principal)
CPT/HCPCS: 88305